=== PATIENT | female | born 1955 | race Caucasian/White ===

== ENCOUNTER 2019-09-23 15:52 | Inpatient (IN) ==
[2019-09-23] MEDS ORDERED: MoRPHine SULFATE 4 MG/ML 1 ML CARP\\VIAL IV STA (16:09)
[2019-09-23] MEDS ORDERED: ONDANSETRON INJ 2 MG/ML 2 ML VIAL IV STA (16:09)
[2019-09-23] MEDS ORDERED: SODIUM CHLORIDE 0.9% 1000ML 1,000 ML IV ONE (16:09)
--- NOTE | 2019-09-23 16:10 | Emergency Department Note ---
Impression & Plan Calculus of proximal left ureter, Acute UTI ED Provider Note CHIEF COMPLAINT: Left flank pain HISTORY OF PRESENTING ILLNESS: This is a 64-year-old female with past medical history of hypertension, hyperlipidemia, atrial fibrillation on Coumadin, and trigeminal neuralgia, who presents to the emergency department today with complaints of left-sided flank pain for the past few days that got worse today. She states the pain starts in her mid back and wraps around to the front of the abdomen. The pain has been much more severe today, constant, sharp, and she rates it an 8/10. She has been unable to find a comfortable position. She took 1500 mg of Tylenol around 11:30 AM this morning without much improvement in her pain. She has not tried any other medications for her pain. She saw her PCP this afternoon and they did a urine dip which was concerning for UTI, they sent her here to the emergency department for further evaluation. She has had associated nausea today but has not had any vomiting. She denies any fevers or chills. She has noted some increased urinary frequency and urgency, but denies any dysuria or hematuria. She has not had any diarrhea or constipation. She denies chest pain, shortness of breath, palpitations, dizziness or syncope, cough or URI symptoms. She denies any known sick contacts. She reports that she has had a UTI in the past, several years ago. She denies any history of kidney stones. REVIEW OF SYSTEMS: A complete 10 point review of systems was reviewed with the patient with pertinent positives and negatives as per history of present illness. All else were negative. PAST MEDICAL HISTORY: Hypertension, dyslipidemia, paroxysmal atrial fibrillation, chronic diastolic heart failure, trigeminal neuralgia, history of a BODY FITTER shunt SOCIAL HISTORY: Lives at home with her , she denies tobacco use ALLERGIES: Reviewed in chart with the patient PHYSICAL EXAM: CONSTITUTIONAL: Pleasant and cooperative. Nontoxic-appearing and in no acute distress, but appears uncomfortable from pain. Mildly dehydrated, but otherwise well appearing and well nourished. HEENT: Normocephalic, atraumatic. PERRL, EOMI. Pharynx normal. Tacky mucous membranes. NECK: Supple, full active range of motion without discomfort. RESPIRATORY: Clear to auscultation bilaterally with no wheezing, crackles, rhonchi or stridor. Equal expansion bilaterally. CARDIOVASCULAR: Regular rate and rhythm with no murmurs, rubs or gallops. Normal peripheral perfusion. No edema. GASTROINTESTINAL: Moderately tender to palpation in the left upper and mid abdomen, no rebound tenderness or guarding. The abdomen is otherwise nontender, soft and nondistended. No palpable masses or HSM. Bowel sounds present in all quadrants. Left-sided CVA tenderness to percussion, no right-sided CVA tenderness. MUSCULOSKELETAL: Full range of motion of all joints without discomfort. INTEGUMENTARY: No rash or other significant dermatologic conditions noted. NEUROLOGIC: Alert and oriented X 4 with normal affect. Normal strength and sensation in all 4 extremities. Normal speech. Normal gait observed. ED COURSE AND MEDICAL DECISION MAKING: CC: Patient presenting with complaint of left flank pain DIFFERENTIAL DIAGNOSIS: Includes, but not limited to ureteral stone, UTI, pyelonephritis, infected stone, pancreatitis, diverticulitis, electrolyte abnormality, dehydration, among others. INTERPRETATION OF LABS: Leukocytosis with left shift, no anemia, normal platelets, no significant electrolyte abnormalities, slightly elevated BUN and creatinine, normal liver enzymes and lipase. Coagulation factors are elevated, consistent with therapeutic levels of warfarin. UA appears consistent with a UTI noting positive nitrite, 2+ leukocyte esterase, greater than 30 WBCs and 4+ bacteria, with small epithelial cells. IMAGING: CT SCAN OF THE ABDOMEN AND PELVIS WITHOUT IV CONTRAST CLINICAL HISTORY: Left flank pain. COMPARISON STUDY: No priors. TECHNIQUE: CT scan of the abdomen and pelvis is performed from the lung bases to the proximal femora. Images are reviewed in the axial, sagittal, and coronal planes. IV contrast was not administered for this examination as per the referring clinician. A dose lowering technique was utilized adhering to the principles of ALARA. CT DOSE: 861.76 mGy.cm FINDINGS: Lung bases: The heart is normal in size and without pericardial effusion. The lung bases are clear. There is a tiny hiatal hernia. Liver: The unenhanced liver is normal in size, contour, and attenuation. There is no intrahepatic biliary ductal dilatation. Gallbladder: Unremarkable. Spleen: Normal in size and attenuation. Pancreas: Unremarkable. Adrenal glands: Unremarkable. Kidneys: The unenhanced kidneys demonstrate mild cortical atrophy. The left kidney is edematous with perinephric stranding and trace fluid. There is a 9 mm obstructing calculus in the left proximal ureter seen on image #214 at the level of L4. This causes [id number] left-sided hydronephrosis. There are at least 5 additional nonobstructing left renal calculi which measure up to 6 mm. There is a punctate nonshadowing calculus in the lower pole the right kidney. There is no right-sided hydronephrosis. There is no evidence of contour deforming renal mass lesion. Abdominal vasculature: The abdominal aorta is normal in course and caliber noting mild atherosclerotic calcification. Bowel: There is no bowel obstruction. The appendix is not identified and reported surgically absent. Peritoneum: A shunt catheter is coiled in the left pelvis. There is no intraper itoneal free air or abdominal ascites. Lymphadenopathy: None. Pelvic viscera: The bladder, uterus, and adnexa are normal as visualized. Skeletal structures: The skeletal structures are osteopenic. There is lumbosacral spondylosis, with postoperative change from laminectomy and posterior fusion seen from L3 -L5. Degenerative sclerosis is noted in the sacroiliac joints and the pubic symphysis. No lytic or blastic lesions are seen. IMPRESSION: 1. There is a 9 mm obstructing calculus in the left proximal ureter as above. This causes [id number] left-sided hydronephrosis. 2. Additional bilateral nonobstructing renal calculi are present in both kidneys as detailed above. 3. Additional findings as above. MEDICATION RECONCILIATION: I attest that I have personally reviewed the patient's current medication list. INITIAL VITAL SIGNS REVIEW: I reviewed the patient's initial vital signs and interpret them as follows: T: Afebrile; BP: Hypertensive; HR: Within normal limits; RR: Within normal limits; Pulse Ox: Within normal limits on room air. Blood pressure screening: The patient was found to have an elevated blood pressure, which was felt to be situational, and was referred to the inpatient team for further managment. MDM SUMMARY: Patient was evaluated at bedside, history and physical exam performed. Patient is alert and oriented, in no acute distress, resting calmly in the stretcher. Patient appears uncomfortable, but is nontoxic-appearing and noted to be afebrile. She does appear to be mildly dehydrated clinically. Left-sided tenderness in the abdomen/flank, with CVA tenderness on the left as well. No acute abdomen. Orders were placed at bedside for labs, UA and urine culture, IV fluid bolus for hydration, IV morphine for pain, IV Zofran for nausea, CT abdomen/pelvis noncontrast to evaluate for left flank pain. Patient discussed with Dr. Coburn, who agrees with my assessment, plan, and disposition. Labs and imaging reviewed as above, labs are concerning for a leukocytosis and slightly elevated BUN and creatinine. Urinalysis appears consistent with infection, a urine culture is pending. 2 g IV Rocephin ordered. CT imaging is notable for a proximal 9 mm obstructing stone in the left ureter with resulting moderate left-sided hydronephrosis. I spoke on the phone with Dr. Arias, urology on-call, regarding my concern for infected obstructing ureteral stone, she agreed to come evaluate the patient and plans to take her to the OR this evening for stent placement. She requested the patient be admitted to the medicine service for IV antibiotics. I spoke with Dr. Kimbrough, [facility] Hospitalist, who to evaluate the patient for the admission. Patient reassessed multiple times throughout ED stay, she has remained hemodynamically stable and her pain is improved after the morphine. The patient was noted to have rigors, a repeat temp check noting that she has become febrile at 38.4 by my check. It is too soon for her to have additional Tylenol at this time and she is being taken to the OR now. Dr. Arias was made aware of the patient's fever. The patient was updated on all results and plan for admission and surgery, all questions were answered at this time she verbalized understanding agreement with the plan. The patient was stable at time of transfer to the OR. The chart was completed utilizing [employer]out Speech voice recognition software. Grammatical errors, random word insertions, pronoun errors, and incomplete sentences are an occasional consequence of this system due to software limitations, ambient noise, and hardware issues. Any formal questions or concerns about the content, text, or information contained within the body of this dictation should be directly addressed to the nurse practitioner for clarification. Attending Attestation: I Jw Coburn MD independently saw and evaluated this patient and agree with history and physical is otherwise documented by the nurse practitioner. See their note for full details. Patient without abdominal tenderness but rigors on exam. Still with mild L flank,LLQ pain. CT, UA, and labs reviewed concerning for L kidney stone and urine infection with developing sepsis. Urology to take for stent, medical admission. Past Med/Surg History Medical History Arachnoid cyst Atrial fibrillation on warfarin and flecinaide---follows with Dr. Hartley Essential tremor (Chronic) bilt hands Hearing deficit Hyperlipidemia Hypertension Lumbar radiculopathy (Chronic) On anticoagulant therapy warfarin daily Osteoarthritis Spinal stenosis Trigeminal neuralgia of right side of face Surgical History History of cardiac cath x1--"at least 10yrs ago", no stents History of colonoscopy History of craniotomy x2 @ [facility] "benign cyst in brain that kept getting bigger, causing severe headaches" with 2nd craniotomy put shunt in History of left breast biopsy benign History of lumbar spinal fusion History of tooth extraction all top teeth removed S/P BODY FITTER shunt (Acute) 2004 @ [facility] [place] Family History Father Family hx of colon cancer COPD (chronic obstructive pulmonary disease) Diabetes Hypertension Uncle Family hx colonic polyps Brother Hypertension Other No family history of adverse response to anesthesia Social History Preferred Language: Faroese Communication Ability: Effective Quality System Manager Required: No Beliefs That Will Affect Care: None Current Living Situation: Alone Feels Safe at Home: Yes Safety Concerns: Feels Safe At This Time Smoking Status: Never smoker Second Hand Exposure: Yes (father smoked) ; Hx Alcohol Use: No Hx Substance Use: No Allergies Allergies Allergy/AdvReac Type Severity Reaction Status Date / Time furosemide [From Lasix] Allergy Intermediate Hypotension Verified 09/23/19 16:23 Home Meds Home Medications Medication Instructions Recorded Confirmed acetaminophen 500 mg tablet 500 mg PO Q4H PRN tab 03/13/19 09/23/19 lisinopril 20 mg PO QAM 04/20/19 09/23/19 Previous Rx's Medication Instructions Recorded simvastatin 20 mg tablet 20 mg PO QPM #90 tab 04/15/19 wrist immobilizer Right #1 ea 05/13/19 Neoprene elbow sleeve compressive #1 ea 05/14/19 warfarin 2 mg tablet 2 mg PO HS #100 tab 06/02/19 warfarin 4 mg tablet 4 mg PO HS #100 tab 06/02/19 flecainide 100 mg tablet 100 mg PO Q12H #180 tab 06/14/19 oxcarbazepine 150 mg tablet 150 mg PO BID 30 Days #60 tab 07/08/19 baclofen 10 mg tablet 10 mg PO QID PRN #120 tab 08/20/19 topiramate 200 mg tablet 200 mg PO BID 30 Days #60 tab 08/24/19 Results & Data (ED) Vital Signs Vital Signs - 24 hr 09/23/19 15:59 09/23/19 16:37 09/23/19 17:53 Temperature 36.5 C Temperature Source Oral Pulse Rate 68 64 Pulse Rate [Apical] 78 Pulse Rate [Left Finger] Pulse Rhythm [Left Finger] Pulse Strength [Left Finger] Respiratory Rate 18 14 22 Respiratory Effort / Characteristics Non-Labored Spontaneous Non-Labored Spontaneous Respiratory Depth Normal Normal Respiratory Pattern Regular Blood Pressure 192/90 H Blood Pressure [Right Arm] 144/104 H Blood Pressure Mean 124 Blood Pressure Mean [Right Arm] 117 Blood Pressure Position Sitting Blood Pressure Position [Right Arm] Pulse Oximetry 97 97 96 Oxygen Delivery Method Room Air Room Air Room Air Sepsis Recent Fever Within 48 Hours No Sepsis Action Taken by Nursing No Action Required 09/23/19 18:46 Temperature 38.3 C H Temperature Source Oral Pulse Rate Pulse Rate [Apical] Pulse Rate [Left Finger] 86 Pulse Rhythm [Left Finger] Regular Pulse Strength [Left Finger] Normal Respiratory Rate 20 Respiratory Effort / Characteristics Non-Labored Spontaneous Respiratory Depth Normal Respiratory Pattern Blood Pressure Blood Pressure [Right Arm] 180/81 H Blood Pressure Mean Blood Pressure Mean [Right Arm] 114 Blood Pressure Position Blood Pressure Position [Right Arm] Lying Pulse Oximetry 95 Oxygen Delivery Method Room Air Sepsis Recent Fever Within 48 Hours Sepsis Action Taken by Nursing Laboratory Data Result diagrams: 09/24/19 04:53 09/24/19 04:53 Lab Results 09/23/19 09/23/19 09/23/19 Range/Units 16:33 16:33 16:33 WBC 17.70 H (4.8-10.8) K/uL RBC 4.26 (4.2-5.4) M/uL Hgb 13.5 (12.0-16.0) g/dL Hct 40.3 (37-47) % MCV 94.6 (80-100) fL MCH 31.7 (25-34) pg MCHC 33.5 (32-36) g/dL RDW Std Deviation 45.4 (36.4-46.3) fL RDW Coeff of Twyla 13.2 (11.5-14.5) % Plt Count 310 (130-400) K/uL MPV 9.8 (7.4-10.4) fL Immature Gran % (Auto) 0.3 % Neut % (Auto) 85.0 % Lymph % (Auto) 7.2 % Izard % (Auto) 7.2 % Eos % (Auto) 0.1 % Baso % (Auto) 0.2 % Immature Gran # (Auto) 0.05 H (0.00-0.02) K/uL Neut # (Auto) 15.06 H (1.4-6.5) K/uL Lymph # (Auto) 1.27 (1.2-3.4) K/uL [place] # (Auto) 1.28 H (0.11-0.59) K/uL Eos # (Auto) 0.01 (0-0.5) K/uL Baso # (Auto) 0.03 (0-0.2) K/uL PT 29.8 H (9.0-12.0) Seconds INR 3.0 H (0.9-1.1) APTT 47.6 H* (21.0-31.0) Seconds PTT Ratio 1.7 Sodium 139 (136-145) mmol/L Potassium 3.6 (3.5-5.1) mmol/L Chloride 111 H (98-107) mmol/L Carbon Dioxide 23 (21-32) mmol/L Anion Gap 5.0 (3-11) BUN 21 H (7-18) mg/dl Creatinine 1.25 H (0.6-1.2) mg/dl Est Cr Clr Drug Dosing 51.4 ml/min Est GFR ( Amer) 51.9 Est GFR (Non-Af Amer) 44.8 BUN/Creatinine Ratio 16.6 (10-20) Glucose 117 H (70-99) mg/dl Calcium 9.0 (8.5-10.1) mg/dl Total Bilirubin 0.3 (0.2-1) mg/dl AST 15 (15-37) U/L ALT 24 (12-78) U/L Alkaline Phosphatase 80 (45-117) U/L Total Protein 8.4 H (6.4-8.2) gm/dl Albumin 4.4 (3.4-5.0) gm/dl Globulin 4.0 (2.5-4.0) gm/dl Albumin/Globulin Ratio 1.1 (0.9-2) Lipase 159 (73-393) U/L Urine Color Urine Appearance (Clear) Urine pH (4.5-7.5) Ur Specific [place] (1.000-1.030) Urine Protein (Negative) Urine Glucose (UA) (Negative) Urine Ketones (Negative) Urine Blood (Negative) Urine Nitrite (Negative) Urine Bilirubin (Negative) Urine Urobilinogen (Negative) Ur Leukocyte Esterase (Negative) Urine WBC (Auto) (0-5) /hpf Urine RBC (Auto) (0-4) /hpf U Hyaline Cast (Auto) (0-5) /lpf U Epithel Cells (Auto) (0-5) /lpf Urine Bacteria (Auto) (Negative) 09/23/19 Range/Units 16:33 WBC (4.8-10.8) K/uL RBC (4.2-5.4) M/uL Hgb (12.0-16.0) g/dL Hct (37-47) % MCV (80-100) fL MCH (25-34) pg MCHC (32-36) g/dL RDW Std Deviation (36.4-46.3) fL RDW Coeff of Twyla (11.5-14.5) % Plt Count (130-400) K/uL MPV (7.4-10.4) fL Immature Gran % (Auto) % Neut % (Auto) % Lymph % (Auto) % [place] % (Auto) % Eos % (Auto) % Baso % (Auto) % Immature Gran # (Auto) (0.00-0.02) K/uL Neut # (Auto) (1.4-6.5) K/uL Lymph # (Auto) (1.2-3.4) K/uL [place] # (Auto) (0.11-0.59) K/uL Eos # (Auto) (0-0.5) K/uL Baso # (Auto) (0-0.2) K/uL PT (9.0-12.0) Seconds INR (0.9-1.1) APTT (21.0-31.0) Seconds PTT Ratio Sodium (136-145) mmol/L Potassium (3.5-5.1) mmol/L Chloride (98-107) mmol/L Carbon Dioxide (21-32) mmol/L Anion Gap (3-11) BUN (7-18) mg/dl Creatinine (0.6-1.2) mg/dl Est Cr Clr Drug Dosing ml/min Est GFR ( Amer) Est GFR (Non-Af Amer) BUN/Creatinine Ratio (10-20) Glucose (70-99) mg/dl Calcium (8.5-10.1) mg/dl Total Bilirubin (0.2-1) mg/dl AST (15-37) U/L ALT (12-78) U/L Alkaline Phosphatase (45-117) U/L Total Protein (6.4-8.2) gm/dl Albumin (3.4-5.0) gm/dl Globulin (2.5-4.0) gm/dl Albumin/Globulin Ratio (0.9-2) Lipase (73-393) U/L Urine Color Yellow Urine Appearance Turbid A (Clear) Urine pH 7.5 (4.5-7.5) Ur Specific [place] 1.024 (1.000-1.030) Urine Protein Negative (Negative) Urine Glucose (UA) Negative (Negative) Urine Ketones Negative (Negative) Urine Blood 1+ H (Negative) Urine Nitrite Positive A (Negative) Urine Bilirubin Negative (Negative) Urine Urobilinogen Negative (Negative) Ur Leukocyte Esterase 2+ H (Negative) Urine WBC (Auto) >30 H (0-5) /hpf Urine RBC (Auto) 10-30 H (0-4) /hpf U Hyaline Cast (Auto) 5-10 H (0-5) /lpf U Epithel Cells (Auto) 5-10 H (0-5) /lpf Urine Bacteria (Auto) 4+ H (Negative) Administered Medications Acetaminophen (Tylenol) 500 mg PO Q4H PRN PRN Reason: fever or pain Stop: 10/23/19 20:16 Last Admin: 09/24/19 07:59 Dose: 500 mg Documented by: [id number] Admin: 09/23/19 21:40 Dose: 500 mg Documented by: [id number] Flecainide Acetate (Tambocor) 100 mg PO Q12H [facility] Stop: 10/23/19 20:59 Last Admin: 09/24/19 08:00 Dose: 100 mg Documented by: [id number] Admin: 09/23/19 21:25 Dose: 100 mg Documented by: [id number] Sodium Chloride (Nss 1000ml) 1,000 mls @ 100 mls/hr IV .Q10H ASHWIN Stop: 10/23/19 20:16 Last Admin: 09/24/19 10:20 Dose: 100 mls/hr Documented by: [id number] Admin: 09/24/19 08:01 Dose: Not Given Documented by: [id number] Infusion: 09/24/19 07:24 Dose: 100 mls/hr Documented by: [id number] Admin: 09/23/19 21:24 Dose: 100 mls/hr Documented by: [id number] Ceftriaxone Sodium 2,000 mg/ (Dextrose) 50 ml in 70 mls @ 140 mls/hr IV DAILY ASHWIN Stop: 10/04/19 08:59 Last Infusion: 09/24/19 10:24 Dose: 0 mls/hr Documented by: [id number] Admin: 09/24/19 09:01 Dose: 140 mls/hr Documented by: [id number] Oxcarbazepine (Trileptal) 150 mg PO BID ASHWIN Stop: 10/23/19 20:59 Last Admin: 09/24/19 08:00 Dose: 150 mg Documented by: [id number] Admin: 09/23/19 21:26 Dose: 150 mg Documented by: [id number] Simvastatin (Zocor) 20 mg PO QPM ASHWIN Stop: 10/23/19 20:59 Last Admin: 09/23/19 21:26 Dose: 20 mg Documented by: [id number] Topiramate (Topamax) 200 mg PO BID ASHWIN Stop: 10/23/19 20:59 Last Admin: 09/24/19 08:00 Dose: 200 mg Documented by: [id number] Admin: 09/23/19 21:25 Dose: 200 mg Documented by: [id number] Discontinued Medications Acetaminophen (Ofirmev) Confirm Administered Dose 1,000 mg IV .STK-MED ONE Stop: 09/23/19 19:10 Last Admin: 09/23/19 19:23 Dose: Not Given Documented by: [id number] Sodium Chloride (Nss 1000ml) 1,000 mls @ 999 mls/hr IV .Q1H1M ONE Stop: 09/23/19 17:09 Last Infusion: 09/23/19 18:11 Dose: 0 mls/hr Documented by: [id number] Admin: 09/23/19 16:32 Dose: 999 mls/hr Documented by: [id number] Ceftriaxone Sodium (Rocephin) 2,000 mg in 70 mls @ 140 mls/hr IV NOW STA Stop: 09/23/19 17:29 Last Infusion: 09/23/19 17:45 Dose: 0 mls/hr Documented by: [id number] Admin: 09/23/19 17:10 Dose: 140 mls/hr Documented by: [id number] Iothalamate Meglumine (Cysto-Conray Ii) Confirm Administered Dose 250 ml .ROUTE .STK-MED ONE Stop: 09/23/19 18:34 Last Admin: 09/23/19 19:51 Dose: Not Given Documented by: [id number] Morphine Sulfate (Morphine Sulfate) 4 mg IV NOW STA Stop: 09/23/19 16:10 Last Admin: 09/23/19 16:33 Dose: 4 mg Documented by: [id number] Ondansetron HCl (Zofran) 4 mg IV NOW STA Stop: 09/23/19 16:10 Last Admin: 09/23/19 16:33 Dose: 4 mg Documented by: [id number] Discharge Plan Visit Data *Final* Discharge Date/Time: 09/23/19 18:34 Chief Complaint: Urinary Symptoms Stated Complaint: UTI, POSSIBLE KIDNEY STONE, SENT BY ED Provider: Jw Coburn ED Midlevel Provider: Guillermina Lopez Discharge Problem: Calculus of proximal left ureter, Acute UTI Patient Disposition: Admitted As Inpatient Discharge Instructions Interventions: ED Discharge Assessment Last Done: 09/23/19 18:34
[2019-09-23 16:49] LABS: Hematocrit (blood only) 40.3 % (37-47); Hemoglobin 13.5 g/dL (12.0-16.0); Mean Corpuscular Hemoglobin 31.7 pg (25-34); Mean Corpuscular Hgb Conc 33.5 g/dL (32-36); Mean Corpuscular Volume 94.6 fL (80-100); Mean Platelet Volume 9.8 fL (7.4-10.4); Platelet Count 310 K/uL (130-400); RDW Coefficient of Variation 13.2 % (11.5-14.5); RDW Standard Deviation 45.4 fL (36.4-46.3); Red Blood Count 4.26 M/uL (4.2-5.4)
[2019-09-23 16:50] LABS: Appearance Urine Turbid (Clear); Bacteria Urine Automated 4+ (Negative); Bilirubin Urine Negative (Negative); Blood Urine 1+ (Negative); Color Urine Yellow; Glucose Urine UA Negative (Negative); Ketones Urine Negative (Negative); Leukocyte Esterase Urine 2+ (Negative); Nitrite Urine Positive (Negative); Specific Gravity Urine 1.024 (1.000-1.030); Urobilinogen Urine Negative (Negative); WBC Urine Automated >30 /hpf (0-5); pH Urine 7.5 (4.5-7.5)
[2019-09-23 16:52] LABS: Protein Urine Negative (Negative); Sulfosalicylic Acid Urine Negative (Negative)
[2019-09-23] MEDS ORDERED: cefTRIAXone SODIUM 2,000 MG/70 ML BAG IV STA (17:00)
[2019-09-23 17:05] LABS: Albumin Level 4.4 gm/dl (3.4-5.0); BUN Creatinine Ratio 16.6 (10-20); Creatinine Clr Calc Pharmacy 51.4 ml/min; Est GFR (African American) 51.9; Est GFR (Non-African American) 44.8; Potassium 3.6 mmol/L (3.5-5.1)
[2019-09-23 17:08] LABS: Albumin Globulin Ratio 1.1 (0.9-2); Bilirubin,Total 0.3 mg/dl (0.2-1); Total Protein 8.4 gm/dl (6.4-8.2)
[2019-09-23 17:11] LABS: Partial Thromboplastin Ratio 1.7; Prothrombin Time 29.8 Seconds (9.0-12.0)
[2019-09-23 17:18] LABS: Basophils # (auto) 0.03 K/uL (0-0.2); Basophils % (auto) 0.2 %; Eosinophils # (auto) 0.01 K/uL (0-0.5); Eosinophils % (auto) 0.1 %; Immature Granulocytes # (auto) 0.05 K/uL (0.00-0.02); Immature Granulocytes % (auto) 0.3 %; Lymphocytes # (auto) 1.27 K/uL (1.2-3.4); Lymphocytes % (auto) 7.2 %; Monocytes # (auto) 1.28 K/uL (0.11-0.59); Monocytes % (auto) 7.2 %; Neutrophils # (auto) 15.06 K/uL (1.4-6.5)
[2019-09-23 17:23] LABS: Partial Thromboplastin Time 47.6 Seconds (21.0-31.0)
--- NOTE | 2019-09-23 17:23 | CT Scan Report ---
CT SCAN OF THE ABDOMEN AND PELVIS WITHOUT IV CONTRAST CLINICAL HISTORY: Left flank pain. COMPARISON STUDY: No priors. TECHNIQUE: CT scan of the abdomen and pelvis is performed from the lung bases to the proximal femora. Images are reviewed in the axial, sagittal, and coronal planes. IV contrast was not administered for this examination as per the referring clinician. A dose lowering technique was utilized adhering to the principles of ALARA. CT DOSE: 861.76 mGy.cm FINDINGS: Lung bases: The heart is normal in size and without pericardial effusion. The lung bases are clear. T here is a tiny hiatal hernia. Liver: The unenhanced liver is normal in size, contour, and attenuation. There is no intrahepatic alessandro iary ductal dilatation. Gallbladder: Unremarkable. Spleen: Normal in size and attenuation. Pancreas: Unremarkable. Adrenal glands: Unremarkable. Kidneys: The unenhanced kidneys demonstrate mild cortical atrophy. The left kidney is edematous with perinephric stranding and trace fluid. There is a 9 mm obstructing calculus in the left proximal uret er seen on image #214 at the level of L4. This causes [id number] left-sided hydronephrosis. The re are at least 5 additional nonobstructing left renal calculi which measure up to 6 mm. There is a p unctate nonshadowing calculus in the lower pole the right kidney. There is no right-sided hydronephro sis. There is no evidence of contour deforming renal mass lesion. Abdominal vasculature: The abdominal aorta is normal in course and caliber noting mild atheroscleroti c calcification. Bowel: There is no bowel obstruction. The appendix is not identified and reported surgically absent. Peritoneum: A shunt catheter is coiled in the left pelvis. There is no intraperitoneal free air or ab dominal ascites. Lymphadenopathy: None. Pelvic viscera: The bladder, uterus, and adnexa are normal as visualized. Skeletal structures: The skeletal structures are osteopenic. There is lumbosacral spondylosis, with p ostoperative change from laminectomy and posterior fusion seen from L3 -L5. Degenerative sclerosis is noted in the sacroiliac joints and the pubic symphysis. No lytic or blastic lesions are seen. IMPRESSION: 1. There is a 9 mm obstructing calculus in the left proximal ureter as above. This causes mild-to-mod erate left-sided hydronephrosis. 2. Additional bilateral nonobstructing renal calculi are present in both kidneys as detailed above. 3. Additional findings as above. ACT 112: Negative or not required by law. Electronically signed by: Dustin Barahona M.D. 09/23/2019 5:22 PM
[2019-09-23] MEDS ORDERED: PROPOFOL IV EMULSION 10 MG/ML 20 ML VIAL IV ONE (18:32)
[2019-09-23] MEDS ORDERED: fentaNYL citrate 100 MCG/2 ML VIAL ONE (18:32)
[2019-09-23] MEDS ORDERED: LIDOCAINE HCL 2% 2 ML VIAL/AMP(20MG/ML) INFIL ONE (18:32)
[2019-09-23] MEDS ORDERED: MIDAZOLAM HCL 1 MG/ML 2ML VIAL ONE (18:32)
[2019-09-23] MEDS ORDERED: ONDANSETRON INJ 2 MG/ML 2 ML VIAL ONE (18:32)
[2019-09-23] MEDS ORDERED: IOTHALAMATE MEGLUMINE II 17.2% 250 ML VIAL ONE (18:33)
[2019-09-23] MEDS ORDERED: ATROPINE SULFATE 0.1 MG/ML 10ML SYR IV PRN (18:34)
[2019-09-23] MEDS ORDERED: ePHEDrine sulfate 50 MG/ML AMP IV PRN (18:34)
[2019-09-23] MEDS ORDERED: fentaNYL citrate 100 MCG/2 ML VIAL IV PRN (18:34)
[2019-09-23] MEDS ORDERED: ONDANSETRON INJ 2 MG/ML 2 ML VIAL IV PRN ×2 (18:34→20:17)
--- NOTE | 2019-09-23 18:34 | Anesthesiology Consultation ---
Date of Service September 23, 2019 Assessment & Plan (1) Encounter for pre-operative examination: Chart Review Chart Review: Acceptable Risk for Surgery Consults Requested none ASA [id number] Proposed Anesthesia Anesthesia Type: MAC Risk / Benefits Reviewed With: PT / POA / Parent / Guardian, Accepts Plan and Informed Consent Obtained History Surgery Operation Date: 09/23/19 19:00 Proposed Procedures p Ureteral Stent Insertion/Removal - uY Arias MD Height/Weight Height: 5 ft 5 in Weight: 98.3 kg Allergies Allergy/AdvReac Type Severity Reaction Status Date / Time furosemide [From Lasix] Allergy Intermediate Hypotension Verified 09/23/19 16:23 Medications Home Medications Medication Instructions Recorded Confirmed Last Taken acetaminophen 500 mg tablet 500 mg PO Q4H PRN tab 03/13/19 09/23/19 09/23/19 11:30 1500 mg simvastatin 20 mg tablet 20 mg PO QPM #90 tab 04/15/19 09/23/19 09/22/19 lisinopril 20 mg PO QAM 04/20/19 09/23/19 09/23/19 07:00 wrist immobilizer Right #1 ea 05/13/19 09/23/19 Unknown Neoprene elbow sleeve compressive #1 ea 05/14/19 09/23/19 Unknown warfarin 2 mg tablet 2 mg PO HS #100 tab 06/02/19 09/23/19 09/22/19 warfarin 4 mg tablet 4 mg PO HS #100 tab 06/02/19 09/23/19 09/22/19 flecainide 100 mg tablet 100 mg PO Q12H #180 tab 06/14/19 09/23/19 09/23/19 07:00 oxcarbazepine 150 mg tablet 150 mg PO BID 30 Days #60 tab 07/08/19 09/23/19 09/23/19 07:00 baclofen 10 mg tablet 10 mg PO QID PRN #120 tab 08/20/19 09/23/19 Unknown topiramate 200 mg tablet 200 mg PO BID 30 Days #60 tab 08/24/19 09/23/19 09/23/19 07:00 NPO Date Last Intake of Fluids: 09/23/19 Time Last Intake of Fluids: 07:00 Date Last Intake of Solids: 09/23/19 Time Last Intake of Solids: 07:00 Past Medical History Medical History Arachnoid cyst Atrial fibrillation on warfarin and flecinaide---follows with Dr. Hartley Essential tremor (Chronic) bilt hands Hearing deficit Hyperlipidemia Hypertension Lumbar radiculopathy (Chronic) On anticoagulant therapy warfarin daily Osteoarthritis Spinal stenosis Trigeminal neuralgia of right side of face Exercise / Class Metabolic Activity III < 4 Walking/Shop/Light housework Past Family History Family History Father Family hx of colon cancer COPD (chronic obstructive pulmonary disease) Diabetes Hypertension Uncle Family hx colonic polyps Brother Hypertension Other No family history of adverse response to anesthesia Past Surgical History Surgical History History of cardiac cath x1--"at least 10yrs ago", no stents History of colonoscopy [place] [facility] [place] in brain that kept getting bigger, causing severe headaches" with 2nd craniotomy put shunt in History of left breast biopsy benign History of lumbar spinal fusion History of tooth extraction all top teeth removed S/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 (Acute) 2004 [place] [facility] [place] Past Anesthesia History No Hx of Anesthesia Complications and No Family Hx of Anesthesia Complications History of PONV No Hx of PONV and No Hx of Motion Sickness Social History Smoking Status: Never smoker Hx Alcohol Use: No Hx Substance Use: No substance use type: does not use Physical Exam Vital Signs Last Vital Signs Temp 97.7 F 09/23/19 15:59 Pulse 78 09/23/19 17:53 Resp 22 09/23/19 17:53 BP 144/104 H 09/23/19 17:53 Pulse Ox 96 09/23/19 17:53 ENMT Mouth: + dentures (Upper) Thyromental Distance: > or= 3.5 Finger Breadths Mallampati Class: II Neck normal visual inspection Respiratory normal respiratory effort Auscultation: lungs clear to auscultation bilaterally Cardiovascular Rate/Rhythm: regular rate and regular rhythm Testing Laboratory Results 09/23/19 16:33 09/23/19 16:33 PT 29.8 Seconds (9.0-12.0) H 09/23/19 16:33 INR 3.0 (0.9-1.1) H 09/23/19 16:33 APTT 47.6 Seconds (21.0-31.0) H* 09/23/19 16:33 Urine Color Yellow 09/23/19 16:33 Urine Appearance Turbid (Clear) A 09/23/19 16:33 Urine pH 7.5 (4.5-7.5) 09/23/19 16:33 Ur Specific [place] 1.024 (1.000-1.030) 09/23/19 16:33 Urine Protein Negative (Negative) 09/23/19 16:33 Urine Glucose (UA) Negative (Negative) 09/23/19 16: Urine Ketones Negative (Negative) 09/23/19 16: Urine Nitrite Positive (Negative) A 09/23/19 16:33 Ur Leukocyte Esterase 2+ (Negative) H 09/23/19 16:33 Urine WBC (Auto) >30 /hpf (0-5) H 09/23/19 16:33 Urine RBC (Auto) 10-30 /hpf (0-4) H 09/23/19 16:33 U Hyaline Cast (Auto) 5-10 /lpf (0-5) H 09/23/19 16:33 U Epithel Cells (Auto) 5-10 /lpf (0-5) H 09/23/19 16:33 Urine Bacteria (Auto) 4+ (Negative) H 09/23/19 16:33 Electrocardiogram Date: 09/23/19 Poor data quality, interpretation may be adversely affected Wide QRS rhythm, rate 89 bpm Left axis deviation Septal infarct , age undetermined Abnormal ECG When compared with ECG of 02-DEC-2012 10:36, Wide QRS rhythm has replaced Atrial fibrillation Vent. rate has increased BY 31 BPM Stress Test Date: 12/11/18 Impression: 1. Negative myocardial perfusion study for ischemic changes. 2. Small, mild anterior and anteroseptal fixed defect likely related to breast attenuation artifact, given normal wall motion. Cannot rule out small infarct. 3. Normal wall motion and left ventricular systolic function. EF 60%. 4. No chest pain. 5. Nondiagnostic Lexiscan ECG.
--- NOTE | 2019-09-23 19:01 | History & Physical Report ---
Date of Service September 23, 2019 Assessment & Plan (1) Ureteral stone: Patient is left-sided 9mm stone in the proximal ureter, causing moderate hydronephrosis and perinephric stranding. Appears to be infected by lab work and symptomatology. Patient is going for emergent surgery with urology now. She was given grams of Rocephin in the ER, will continue this at 1 g daily for now pending culture results. Will follow postoperatively. (2) Dyslipidemia: Patient can continue simvastatin 20 mg as previously noted all of her other outpatient medications. (3) Paroxysmal atrial fibrillation: Patient is on Coumadin INR 3. I discussed with urology, will hold, consider restarting tomorrow night if INR is between 2 and 3. Patient will need to continue grams every 12 hours. Will hold off on the lisinopril for now until renal function normalizes. History of Present Illness Primary Care Provider: Marco Kirkpatrick MD This is a 64-year-old female past medical history of paroxysmal atrial fibrillation on Coumadin, dyslipidemia, and chronic diastolic CHF that presents today complaining of left-sided flank pain. Patient is in some distress secondary to pain, history is limited as the patient is due to be in the OR momentarily. Patient tells me that she was having some mild flank pain over the past 2 days, this worsened significantly on in the morning. She did not have any dysuria. She denied any fevers but she did have chills and is exhibiting significant rigors during the interview. Pain is mostly over the left flank. She has noticed no hematuria on presentation, the patient was given 2 g of Rocephin along with fentanyl 25 mcg for pain. She is, the pain has worsened somewhat has a fentanyl is wearing off. Of note, the urologist was already in the room obtaining consent for ureteral stent placement which is to be done momentarily. Allergies Allergy/AdvReac Type Severity Reaction Status Date / Time furosemide [From Lasix] Allergy Intermediate Hypotension Verified 09/23/19 16:23 Home Medications Home Medications Medication Instructions Recorded Confirmed Type acetaminophen 500 mg tablet 500 mg PO Q4H PRN tab 03/13/19 09/23/19 History simvastatin 20 mg tablet 20 mg PO QPM #90 tab 04/15/19 09/23/19 Rx lisinopril 20 mg PO QAM 04/20/19 09/23/19 History wrist immobilizer Right #1 ea 05/13/19 09/23/19 Rx Neoprene elbow sleeve compressive #1 ea 05/14/19 09/23/19 Rx warfarin 2 mg tablet 2 mg PO HS #100 tab 06/02/19 09/23/19 Rx warfarin 4 mg tablet 4 mg PO HS #100 tab 06/02/19 09/23/19 Rx flecainide 100 mg tablet 100 mg PO Q12H #180 tab 06/14/19 09/23/19 Rx oxcarbazepine 150 mg tablet 150 mg PO BID 30 Days #60 tab 07/08/19 09/23/19 Rx baclofen 10 mg tablet 10 mg PO QID PRN #120 tab 08/20/19 09/23/19 Rx topiramate 200 mg tablet 200 mg PO BID 30 Days #60 tab 08/24/19 09/23/19 Rx Past Med/Surg History Medical History Arachnoid cyst Atrial fibrillation on warfarin and flecinaide---follows with Dr. Hartley Essential tremor (Chronic) bilt hands Hearing deficit Hyperlipidemia Hypertension Lumbar radiculopathy (Chronic) On anticoagulant therapy warfarin daily Osteoarthritis Spinal stenosis Trigeminal neuralgia of right side of face Surgical History History of cardiac cath x1--"at least 10yrs ago", no stents History of colonoscopy [place] [facility] [place] [facility] [place] in [place] that kept getting bigger, causing severe headaches" with 2nd craniotomy put shunt in History of left breast biopsy benign History of lumbar spinal fusion History of tooth extraction all top teeth removed S/P PET RESORT CONCIERGE shunt (Acute) 2004 [place] [facility] [place] [place] Family History Father Family hx of colon cancer COPD (chronic obstructive pulmonary disease) Diabetes Hypertension Uncle Family hx colonic polyps Brother Hypertension Other No family history of adverse response to anesthesia Social History Preferred Language: Malawian Communication Ability: Effective 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 Machine Typist Required: No Beliefs That Will Affect Care: None Current Living Situation: Alone Feels Safe at Home: Yes Safety Concerns: Feels Safe At This Time Smoking Status: Never smoker Second Hand Exposure: Yes (father smoked) ; Hx Alcohol Use: No Hx Substance Use: No Review of Systems Constitutional: + chills and + body aches; no fever, no weakness, no weight loss and no weight gain Eyes: as per Subjective / HPI Respiratory: no cough, no chest congestion, no dyspnea and no dyspnea on exer tion Cardiovascular: no chest pain, no orthopnea, no palpitations, no ligh theadedness and no edema Gastrointestinal: no abdominal pain, no nausea, no vomiting, no constipation and no diarrhea/loose stools Genitourinary: no dysuria, no difficulty urinating, no urinary frequency, no urinary hesitancy, no urinary urgency and no flank pain CVA pain Musculoskeletal: no back pain, no neck pain, no joint pain, no stiffness and no myalgia Integumentary: no rash Neurologic: no gait abnormality, no unsteadiness, no falls and no generalized weakness Physical Exam Constitutional: cooperative; no acute distress rigorous, somewhat uncomfortable from pain Neck: trachea midline, no thyromegaly Respiratory: normal respiratory effort Auscultation: lungs clear to auscultation bilaterally; no crackles, no rales, no rhonchi and no wheezes Cardiovascular: Rate/Rhythm: regular rate and regular rhythm Heart Sounds: normal S1 and normal S2 Gastrointestinal (Abdomen): Inspection/Auscultation: abdomen normal to inspection Percussion/Palpation: abdomen soft; abdomen nontender, no guarding, abdomen not rigid and no hepatosplenomegaly Skin: no rashes, warm and dry Results & Data Results & Data ([facility]) Vital Signs (Past 12 Hours) Vital Signs Temp Pulse Pulse Resp BP BP Pulse Ox 09/23/19 17:53 78 22 144/104 H 96 09/23/19 16:37 64 14 97 09/23/19 15:59 36.5 C 68 18 192/90 H 97 Laboratory Results WBCs of 17.7, hemoglobin of 13, hematocrit of 40.3, platelets of 310. INR is 3. Sodium 139, potassium 3.6, chloride 111, CO2 23,, BUN 21, creatinine 1.25. This appears to be elevated from previous lab draw from 05/29/2019. Left is normal. Urine is turbid with 1+ blood, positive nitrites, 2+ leuk esterases, over 30 WBCs, 10-30 RBCs. Diagnostic Findings [facility], [place] [phone] CT Scan Report Patient: SAYDA MCELROY Date: 09/23/19 MR#: [id number]: [address] [facility] Acct ID:[id number]: Date: 1955[facility] Zip: [place] [id number] Age: 64Location: ED Sex: F Room/Bed: Att Phy:Diagnosis: UTI, POSSIBLE KIDNEY STONE, SENT BY DR Hsu Phy: Marco Kirkpatrick, MDService Date: 09/23/19 [facility] Phy:Interpreting Phy: Dustin Barahona MD Admit Phy: Ordering Phy: Guillermina Lopez CRNP cc: ~ CT SCAN OF THE ABDOMEN AND PELVIS WITHOUT IV CONTRAST CLINICAL HISTORY: Left flank pain. COMPARISON STUDY: No priors. TECHNIQUE: CT scan of the abdomen and pelvis is performed from the lung bases to the proximal femora. Images are reviewed in the axial, sagittal, and coronal planes. IV contrast was not administered for this examination as per the referring clinician. A dose lowering technique was utilized adhering to the principles of ALARA. CT DOSE: 861.76 mGy.cm FINDINGS: Lung bases: The heart is normal in size and without pericardial effusion. The lung bases are clear. There is a tiny hiatal hernia. Liver: The unenhanced liver is normal in size, contour, and attenuation. There is no intrahepatic biliary ductal dilatation. Gallbladder: Unremarkable. Spleen: Normal in size and attenuation. Pancreas: Unremarkable. Adrenal glands: Unremarkable. Kidneys: The unenhanced kidneys demonstrate mild cortical atrophy. The left kidney is edematous with perinephric stranding and trace fluid. There is a 9 mm obstructing calculus in the left proximal ureter seen on image #214 at the level of L4. This causes [id number] left-sided hydronephrosis. There are at least 5 additional nonobstructing left renal calculi which measure up to 6 mm. There is a punctate nonshadowing calculus in the lower pole the right kidney. There is no right-sided hydronephrosis. There is no evidence of contour deforming renal mass lesion. Abdominal vasculature: The abdominal aorta is normal in course and caliber noting mild atherosclerotic calcification. Bowel: There is no bowel obstruction. The appendix is not identified and reported surgically absent. Peritoneum: A shunt catheter is coiled in the left pelvis. There is no intraperitoneal free air or abdominal ascites. Lymphadenopathy: None. Pelvic viscera: The bladder, uterus, and adnexa are normal as visualized. Skeletal structures: The skeletal structures are osteopenic. There is lumbosacral spondylosis, with postoperative change from laminectomy and posterior fusion seen from L3 -L5. Degenerative sclerosis is noted in the sacroiliac joints and the pubic symphysis. No lytic or blastic lesions are seen. IMPRESSION: 1. There is a 9 mm obstructing calculus in the left proximal ureter as above. This causes [id number] left-sided hydronephrosis. 2. Additional bilateral nonobstructing renal calculi are present in both kidneys as detailed above. 3. Additional findings as above. PG Care Time/CCT Total # of Minutes Spent Total Time Spent with Patient: Total time spent is greater than 50% in coordination of care (as documented) at patient's floor/unit and/or counseling patient: Coding Level of Care Code 10846 Initial Inpt Care Lvl 3 Diagnoses Ureteral stone N20.1 Dyslipidemia E78.5 Paroxysmal atrial fibrillation I48.0
[2019-09-23] MEDS ORDERED: ACETAMINOPHEN 1000 MG/100 ML IV IV ONE (19:09)
--- NOTE | 2019-09-23 19:16 | Urology Consultation ---
Date of Consultation September 23, 2019 Assessment & Plan (1) Ureteral stone: 9mm left upj stone with hydro and uti with sepsis to OR emergently to drain infected left kidney with cysto and left stent consent given, questions answered. ct shows large stranding around the left kidney. rocephin given in ER await urine cultures hope they are not contaminated as it was a voided specimen and u/a shows epithelial cells on coumadin INR at 3 today will hold tonight as she has not eaten well today at all. Present on Admission?: Yes History of Present Illness Reason for Consultation: stone and uti Requesting Physician: Dena Lopez NP History of Present Illness I am asked by Dena Lopez NP in ER to evaluate and treat patient for uti and obstructing left upj stone. Ct shows stone is creating mild hydro and is 9mm in size., She also has other smaller left kidney stones. She has only occassional utis at baseline. She has had flank pain for a week but though she had a muscle strain. She had nausea today and fevers just the last 90 minutes. her white count was mildly elevated. her urine looks infected. Allergies Allergy/AdvReac Type Severity Reaction Status Date / Time furosemide [From Lasix] Allergy Intermediate Hypotension Verified 09/23/19 16:23 Home Medications Home Medications Medication Instructions Recorded Confirmed Type acetaminophen 500 mg tablet 500 mg PO Q4H PRN tab 03/13/19 09/23/19 History simvastatin 20 mg tablet 20 mg PO QPM #90 tab 04/15/19 09/23/19 Rx lisinopril 20 mg PO QAM 04/20/19 09/23/19 History wrist immobilizer Right #1 ea 05/13/19 09/23/19 Rx Neoprene elbow sleeve compressive #1 ea 05/14/19 09/23/19 Rx warfarin 2 mg tablet 2 mg PO HS #100 tab 06/02/19 09/23/19 Rx warfarin 4 mg tablet 4 mg PO HS #100 tab 06/02/19 09/23/19 Rx flecainide 100 mg tablet 100 mg PO Q12H #180 tab 06/14/19 09/23/19 Rx oxcarbazepine 150 mg tablet 150 mg PO BID 30 Days #60 tab 07/08/19 09/23/19 Rx baclofen 10 mg tablet 10 mg PO QID PRN #120 tab 08/20/19 09/23/19 Rx topiramate 200 mg tablet 200 mg PO BID 30 Days #60 tab 08/24/19 09/23/19 Rx Patient History Medical History Arachnoid cyst Atrial fibrillation on warfarin and flecinaide---follows with Dr. Hartley Essential tremor (Chronic) bilt hands Hearing deficit Hyperlipidemia Hypertension Lumbar radiculopathy (Chronic) On anticoagulant therapy warfarin daily Osteoarthritis Spinal stenosis Trigeminal neuralgia of right side of face Surgical History History of cardiac cath x1--"at least 10yrs ago", no stents History of colonoscopy [place] [facility] [place] that kept getting bigger, causing severe headaches" with 2nd craniotomy put shunt in History of left breast biopsy benign History of lumbar spinal fusion History of tooth extraction all top teeth removed S/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 (Acute) [place] [facility] [place] History Father Family hx of colon cancer COPD (chronic obstructive pulmonary disease) Diabetes Hypertension Uncle Family hx colonic polyps Brother Hypertension Other No family history of adverse response to anesthesia Social History Preferred Language: Macedonian Communication Ability: Effective Medical Examiner Required: No Beliefs That Will Affect Care: None Current Living Situation: Spouse Feels Safe at Home: Yes Smoking Status: Never smoker Second Hand Exposure: Yes (father smoked) ; Hx Alcohol Use: No Hx Substance Use: No Review of Systems Review of Systems: PMH- afib, spione surgery, obesity Surg- spine surgery v-p shunt, removal of brain cyst Allergy - lasix makes her bp go low Soc- no tobacco or alcpohol, lives alone just in Jul 2019, has adult daughters locally Fam hx- no stones ROS- + fevers + chills, + nausea no emesis, no chest pain, no seizures, no rash, bowels fine, no cough or cold. Physical Exam Constitutional: WD/WN, vitals as above + acute distress and + obese rigors and fever to 38.5 Respiratory: normal respiratory effort, lungs clear to auscultation Cardiovascular: RRR, no murmur, no edema Chest (Breasts): normal inspection/palpation of breasts Skin: no rashes, warm and dry Psychiatric: A+Ox3, euthymic affect Results & Data Vital Signs (Past 12 Hours) Vital Signs Temp Pulse Pulse Pulse Resp BP BP 09/23/19 18:46 38.3 C H 86 20 180/81 H 09/23/19 17:53 78 22 144/104 H 09/23/19 16:37 64 14 09/23/19 15:59 36.5 C 68 18 192/90 H Pulse Ox 09/23/19 18:46 95 09/23/19 17:53 96 09/23/19 16:37 97 09/23/19 15:59 97
--- NOTE | 2019-09-23 19:43 | Operative Report ---
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 Her genitals were prepped and draped in sterile fashion. Time out held with team. I placed a 21 fr rigid cystoscope to bladder. The urethra is unremarkable. The UOs are raised stadium shape. There is a mild cystitis. I placed a road runner wire up left ureter and placed a 24 centimeter 6 Fr double J stent easily. There is brisk efflux of very cloudy urine under pressure after placement. I drained some cloudy urine into a specimen cup for specimen. I left bladder empty and concluded case. SHe transferred to recovery under my escort, in stable condition. Plan: 2-3 day hospital stay for iv antibiotics Pyridium for dysuria prn plan for outpatient surgery to remove the infected stones in 1-2 weeks ASA 3e dirty case 5 seconds fluoro rocephin antibiotic in ER I attest to the content of the Intraoperative Record and any orders documented therein. Any exceptions are noted below.
--- NOTE | 2019-09-23 19:44 | Fluoroscopy Report ---
INTRAOPERATIVE RADIOGRAPHS CLINICAL HISTORY: Left ureteral stent placement. Fluoroscopy time: 4 seconds. FINDINGS: 3 spot fluoroscopic views of the left abdomen are correlated with abdominal CT dated 020. The Initial image shows a wire projecting over the left renal pelvis. A peritoneal shunt cathete r is noted on the right. The second 2 images show the proximal end of a left ureteral stent being mary gilbert. Fusion hardware is noted in the lumbar spine. IMPRESSION: Intraoperative images from a left ureter stent placement procedure as above. Electronically signed by: Dustin Barahona M.D. 09/23/2019 7:43 PM
[2019-09-23] MEDS ORDERED: BACLOFEN 10 MG TAB PO PRN (20:17)
--- NOTE | 2019-09-23 20:23 | Anesthesiology Progress Note ---
Date of Service September 23, 2019 Anesthesia Post Procedure Vital Signs Vital Signs: Temp Pulse Pulse Pulse Resp BP BP 09/23/19 20:17 98.8 F 09/23/19 20:15 102.4 F H 89 16 154/78 H 09/23/19 20:00 101.7 F H 86 20 161/79 H 09/23/19 19:55 88 22 163/82 H 09/23/19 19:45 102.0 F H 91 H 16 145/76 H 09/23/19 18:46 100.9 F H 86 20 180/81 H 09/23/19 17:53 78 22 144/104 H 09/23/19 16:37 64 14 09/23/19 15:59 97.7 F 68 18 192/90 H Pulse Ox 09/23/19 20:17 09/23/19 20:15 96 09/23/19 20:00 97 09/23/19 19:55 96 09/23/19 19:45 98 09/23/19 18:46 95 09/23/19 17:53 96 09/23/19 16:37 97 09/23/19 15:59 97 Transfer of Care Handoff Completed per policy Notes Mental Status: alert / awake / arousable and participated in evaluation Patient Amnestic to Procedure: Yes Nausea / Vomiting: adequately controlled Pain: adequately controlled Airway Patency, RR, SpO2: stable & adequate BP & HR: stable & adequate Hydration State: stable & adequate Anesthetic Complications: no major complications apparent and Pt Satisfied with anesthetic care
[2019-09-23 20:49] LABS: INR 2.9 (0.9-1.1); Prothrombin Time 29.3 Seconds (9.0-12.0)
[2019-09-23] MEDS: SODIUM CHLORIDE 0.9% 1000ML 1,000 ML IV SCH (21:24)
[2019-09-23] MEDS: TOPIRAMATE 100 MG TAB PO SCH (21:25)
[2019-09-23] MEDS: FLECAINIDE ACETATE 100 MG TABLET PO SCH (21:25)
[2019-09-23] MEDS: OXcarbazepine 150 MG TABLET PO SCH (21:26)
[2019-09-23] MEDS: SIMVASTATIN 20 MG TAB PO SCH (21:26)
[2019-09-23] MEDS: ACETAMINOPHEN 500 MG TAB PO PRN (21:40)
[2019-09-24 05:41] LABS: Hematocrit (blood only) 36.9 % (37-47); Hemoglobin 11.9 g/dL (12.0-16.0); Mean Corpuscular Hemoglobin 30.4 pg (25-34); Mean Corpuscular Hgb Conc 32.2 g/dL (32-36); Mean Corpuscular Volume 94.4 fL (80-100); Mean Platelet Volume 10.1 fL (7.4-10.4); Platelet Count 269 K/uL (130-400); RDW Coefficient of Variation 13.4 % (11.5-14.5); RDW Standard Deviation 46.1 fL (36.4-46.3); Red Blood Count 3.91 M/uL (4.2-5.4)
[2019-09-24 05:48] LABS: INR 2.7 (0.9-1.1); Prothrombin Time 27.2 Seconds (9.0-12.0)
[2019-09-24 05:58] LABS: Basophils # (auto) 0.02 K/uL (0-0.2); Basophils % (auto) 0.1 %; Eosinophils # (auto) 0.01 K/uL (0-0.5); Eosinophils % (auto) 0.1 %; Immature Granulocytes # (auto) 0.07 K/uL (0.00-0.02); Immature Granulocytes % (auto) 0.4 %; Lymphocytes # (auto) 1.47 K/uL (1.2-3.4); Lymphocytes % (auto) 8.1 %; Monocytes # (auto) 1.52 K/uL (0.11-0.59); Monocytes % (auto) 8.4 %; Neutrophils # (auto) 15.11 K/uL (1.4-6.5); Neutrophils % (auto) 82.9 %
[2019-09-24 06:08] LABS: BUN Creatinine Ratio 17.7 (10-20); Calcium 8.6 mg/dl (8.5-10.1); Creatinine Clr Calc Pharmacy 59.5 ml/min; Est GFR (African American) 61.9; Est GFR (Non-African American) 53.5; Potassium 3.6 mmol/L (3.5-5.1)
--- NOTE | 2019-09-24 07:38 | Urology Progress Note ---
Date of Service September 24, 2019 Assessment & Plan (1) Ureteral stone: 9mm left upj stone with hydro and uti with sepsis POD#1 s/p cysto and left stent INR looks good, resume coumadin usual dose tonight. encouraged her to eat small meals until her appetite improves. White count should start to drop tomorrow. Anticipate home tomorrow is culture resulted and if she is afebrile for 24 hours. had fevers thru most of last evening. plan for day surgery next week to remove the infected left ureteral stone as an outpatient complete 14 days of antibiotics. ambulate in halls often Subjective Patient sitting up in bed. She looks comfortable. She had back pain in her spine due to being in bed. At home she sleeps in a recliner for her back problems. Her urine is clear and not painful to pass. She is currently afebrile. She has little appetite but no nausea. taking lots of water. Review of Systems Review of Systems: + fever, no chest pain no cough, no SoB, no rash, no seizures, no BM Physical Exam Constitutional: WD/WN, vitals as above + obese, healthy appearing, well groomed and cooperative Skin: no rashes, warm and dry Psychiatric: A+Ox3, euthymic affect Results & Data Vital Signs (Past 12 Hours) Vital Signs Temp Pulse Pulse Resp BP Pulse Ox 09/24/19 07:28 37.0 C 70 18 120/71 96 09/24/19 03:26 36.7 C 69 20 131/79 93 09/23/19 22:52 37.0 C 84 16 115/70 95 09/23/19 22:10 37.6 C H 82 16 125/71 94 09/23/19 21:19 37.3 C 86 16 143/84 H 92 09/23/19 20:17 37.1 C 09/23/19 20:15 37.8 C H 86 16 125/75 94 09/23/19 20:00 38.7 C H 86 20 161/79 H 97 09/23/19 19:55 88 22 163/82 H 96 09/23/19 19:45 38.9 C H 91 H 16 145/76 H 98
[2019-09-24] MEDS: ACETAMINOPHEN 500 MG TAB PO PRN ×2 (07:59→19:25)
[2019-09-24] MEDS: OXcarbazepine 150 MG TABLET PO SCH ×2 (08:00→21:30)
[2019-09-24] MEDS: FLECAINIDE ACETATE 100 MG TABLET PO SCH ×2 (08:00→21:31)
[2019-09-24] MEDS: TOPIRAMATE 100 MG TAB PO SCH ×2 (08:00→21:31)
[2019-09-24] MEDS: SODIUM CHLORIDE 0.9% 1000ML 1,000 ML IV SCH ×2 (08:01→10:20)
[2019-09-24] MEDS: cefTRIAXone SODIUM 2,000 MG in DEXTROSE 5% 50 ML/50 ML BAG IV SCH (09:01)
--- NOTE | 2019-09-24 13:40 | Hospitalist Progress Note ---
Date of Service September 24, 2019 Assessment & Plan (1) Ureteral stone: Patient is left-sided 9mm stone in the proximal ureter, causing moderate hydronephrosis and perinephric stranding. Patient was taken the OR on with a left ureteral stent placed. Urine culture preliminarily growing E. coli sensitivities are not returned continues on ceftriaxone Pt initially admitted with concern for sepsis with fever, tachycardia and leukocytosis, sepsis has resolved and now ruled out (2) Dyslipidemia: Patient can continue simvastatin 20 mg as previously noted all of her other outpatient medications. (3) Paroxysmal atrial fibrillation: Patient is on Coumadin INR 3. continue to hold, if additional procedures are needed may consider using lovenox until next procedure before restarting coumadin. Will need to discuss with Dr Valero for timing of anticoagulation. continues on flecanide (4) Hypertension: pt typically takes lisinopril which was held in the situation of lina, her blood pressure is in good condition and will continue to hold Admission and Anticipated Discharge Date Admission Date: September 23, 2019 Subjective Patient is feeling much better she has had some back pain but she feels this is musculoskeletal from a chronic back pain problem in our hospital beds. She has no CVA pain or tenderness. She has no dysuria. She is feeling a little weak and tired after the procedure Review of Systems Review of Systems: Mild distress and moderate fatigue no headache, blurry or double vision no speech or swallowing issues no chest pain, pressure or palpitations no shortness of breath, cough or wheezes no abdominal pain, nausea or vomiting, diarrhea or constipation no dysuria, hematuria or frequency no focal joint pain or swelling Centralized low positional back pain, without CVA tenderness or radicular pain no bruising, bleeding or rashes no focal signs of weakness or numbness or altered sensation no complaints or anxiety or depression Physical Exam Physical Exam: The patient appeared well nourished and normally developed. She is only minor distress Vital signs as documented. Head exam is unremarkable. No scleral icterus Neck is without JVD, thyromegaly, or carotid bruits. Abdominal exam reveals normal bowel sounds, soft no masses, no organomegaly and no aortic enlargement Extremities are nonedematous and both pedal pulses are normal. Neurologic exam is alert and oriented, no focal loss of strength or sensation Skin is without bruises or rashes Psychologically is without concerns for anxiety or depression Results & Data Results & Data ([facility] [place]) Vital Signs (Past 12 Hours) Vital Signs Temp Pulse Resp BP Pulse Ox 09/24/19 12:02 98.4 F 71 18 127/72 98 09/24/19 07:28 98.6 F 70 18 120/71 96 09/24/19 03:26 98.1 F 69 20 131/79 93 PG Care Time/CCT Total # of Minutes Spent Total Time Spent with Patient: Total time spent is greater than 50% in coordination of care (as documented) at patient's floor/unit and/or counseling patient: Coding Level of Care Code 15074 Subseq Hosp Care Lvl 2 Diagnoses Ureteral stone N20.1 Dyslipidemia E78.5 Paroxysmal atrial fibrillation I48.0 Hypertension I10
--- NOTE | 2019-09-24 14:22 | Electrocardiogram Report ---
Test Reason : Blood Pressure : / mmHG Vent. Rate : 087 BPM Atrial Rate : 079 BPM P-R Int : 000 ms QRS Dur : 120 ms QT Int : 386 ms P-R-T Axes : 000 -49 071 degrees QTc Int : 464 ms Poor data quality, interpretation may be adversely affected Likely Sinus rhythm with 1st degree AV block although atrial flutter can be considered Left anterior fascicular block Poor R wave progression, consider anterior IN vs. lead placement vs. LVH Abnormal ECG When compared with ECG of 02-DEC-2012 10:36, Vent. rate has increased BY 29 BPM Sinus rhythm appears to have replaced atrial fibrillation Confirmed by Hong Ayon ([id number]) on 09/24/2019 2:22:02 PM Referred By: REFERRED SELF Confirmed By:Duane Ayon
[2019-09-24] MEDS: LIDOCAINE 5% 1 PATCH TD SCH (15:47)
[2019-09-24] MEDS ORDERED: WARFARIN SOD 6 MG TAB PO SCH (16:00)
[2019-09-24] MEDS ORDERED: SODIUM CHLORIDE 0.65% NA SOLN 45 ML (OCEAN) ONE (19:28)
[2019-09-24] MEDS: SIMVASTATIN 20 MG TAB PO SCH (21:31)
[2019-09-25 06:22] LABS: Calcium 8.4 mg/dl (8.5-10.1); Creatinine Clr Calc Pharmacy 66.9 ml/min; Est GFR (African American) 71.4; Est GFR (Non-African American) 61.6; Potassium 3.2 mmol/L (3.5-5.1)
[2019-09-25] MEDS: OXcarbazepine 150 MG TABLET PO SCH (08:27)
[2019-09-25] MEDS: FLECAINIDE ACETATE 100 MG TABLET PO SCH (08:28)
[2019-09-25] MEDS: LIDOCAINE 5% 1 PATCH TD SCH (08:28)
[2019-09-25] MEDS: cefTRIAXone SODIUM 2,000 MG in DEXTROSE 5% 50 ML/50 ML BAG IV SCH (08:28)
[2019-09-25] MEDS: TOPIRAMATE 100 MG TAB PO SCH (08:28)
[2019-09-25] MEDS ORDERED: POTASSIUM CHLORIDE 20 MEQ TABCR PO STA (10:28)
--- NOTE | 2019-09-25 12:14 | Urology Progress Note ---
Date of Service September 25, 2019 Assessment & Plan (1) Calculus of proximal left ureter: her urine is growing e coli r to amp and unasyn and cefazolin she is going home on oral abt for a 14 day total course may stay on coumadin thru surgery, try to aim for INR 2- 2.5. plan day surgery Wed at 7:15am. Present on Admission?: Yes Subjective She feels well, no fevers, no pain. No blood in urine. Appetite better. 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
--- NOTE | 2019-09-25 18:48 | Discharge Summary ---
Date of Service September 25, 2019 Admission HPI Per Admitting Provider This is a 64-year-old female past medical history of paroxysmal atrial fibrillation on Coumadin, dyslipidemia, and chronic diastolic CHF that presents today complaining of left-sided flank pain. Patient is in some distress secondary to pain, history is limited as the patient is due to be in the OR momentarily. Patient tells me that she was having some mild flank pain over the past 2 days, this worsened significantly on in the morning. She did not have any dysuria. She denied any fevers but she did have chills and is exhibiting significant rigors during the interview. Pain is mostly over the left flank. She has noticed no hematuria on presentation, the patient was given 2 g of Rocephin along with fentanyl 25 mcg for pain. She is, the pain has worsened somewhat has a fentanyl is wearing off. Of note, the urologist was already in the room obtaining consent for ureteral stent placement which is to be done momentarily. Principal Diagnosis Left ureteral stone status post stent placement A. fib with manipulation of anticoagulation during hospital stay E. coli UTI/pyelonephritis associated with kidney stone present on admission Discharge Exam The patient appeared well Vital signs as documented. Lungs are clear to auscultation and percussion. Cardiac exam, Rhythm is regular.. No murmurs, rubs or gallops. Abdominal exam reveals normal bowel sounds, soft non tender, no masses Extremities are nonedematous and both pedal pulses are normal. Neurologic exam is alert and oriented, no focal loss of strength or sensation Skin is without bruises or rashes Psychologically is without concerns for anxiety or depression Discharge Data Allergies Allergy/AdvReac Type Severity Reaction Status Date / Time furosemide [From Lasix] Allergy Intermediate Hypotension Verified 09/23/19 16:23 Consultations 09/23/19 18:22 ED Decision to Admit Stat 09/23/19 21:00 Consult Urology Routine Procedures Performed Operation Date: 09/23/19 19:00 Actual Procedures p Cystoscopy, Left Ureteral Stent Insertion(Left) - Yu Arias MD Ordered Studies 09/23/19 16:09 CT abd pelvis wo con Stat 09/23/19 18:57 FL KUB Routine Hospital Course (1) Ureteral stone: Patient is left-sided 9mm stone in the proximal ureter, causing moderate hydronephrosis and perinephric stranding. Patient was taken the OR on with a left ureteral stent placed. Urine culture preliminarily growing E. coli sensitivities will be covered by Cefdinir, will have on 14 days as has upcoming stone removal, tentatively scheduled for 09/30/19 Pt initially admitted with concern for sepsis with fever, tachycardia and leukocytosis, sepsis has resolved and now ruled out (2) Dyslipidemia: Patient can continue simvastatin 20 mg as previously noted all of her other outpatient medications. (3) Paroxysmal atrial fibrillation: Patient is on Coumadin INR 3. initially was some concern for holding this med at time of discharge, after discharge DR Arias confered with cardiology to continue home coumadin but to have cardiology work to keep INr on the low side of 2-3, Dr Arias informed me that she will take care of notifying the pt of continuing this medicine as contradicted by discharge instructions, continues on flecanide (4) Hypertension: pt typically takes lisinopril which was held in the situation of lina, her blood pressure is in good condition and will continue to hold Total Time Total Time Spent Total Time Spent (In Minutes): It required greater than 30 minutes to prepare this patient for discharge Discharge Plan Discharge Items Patient Disposition: Home - Self-Care Reason For Visit: KIDNEY STONE Discharge Diagnosis: left kidney stone E coli uti Activity: Resume your previous activity Non-emergency contact: Primary Care Provider and Urologist Call non-emergency contact if: you have any medication questions and your symptoms worsen Follow-up/Referrals: Silvestre Osman MD [Hospitalist] - Marco Kirkpatrick MD [Primary Care Provider] - Yu Arias MD [Physician] - Diet: Regular Addtl Attending Provider Instructions: After speaking to Dr arias she feels it will be ok to continue your coumadin as ordered. You are tentatively scheduled for a procedure with Dr. Arias and urology on Saturday, September 29. You should receiving a phone call early next week with instructions regarding her perioperative care. Pending Studies at Discharge: No Stand-Alone Forms: My XIFIN, Smoking Cessation Medications and DC Order Prescriptions: New cefdinir 300 mg capsule 300 mg PO BID 14 Days Qty: 28 RF: 0 Continued acetaminophen 500 mg tablet 500 mg PO Q4H PRN (Reason: fever or pain) RF: 0 simvastatin 20 mg tablet 20 mg PO QPM Qty: 90 RF: 3 flecainide 100 mg tablet 100 mg PO Q12H Qty: 180 RF: 3 oxcarbazepine 150 mg tablet 150 mg PO BID 30 Days Qty: 60 RF: 1 baclofen 10 mg tablet 10 mg PO QID PRN (Reason: Pain) Qty: 120 RF: 0 topiramate 200 mg tablet 200 mg PO BID 30 Days Qty: 60 RF: 5 lisinopril 20 mg tablet 20 mg PO QAM RF: 0 Discontinued warfarin 4 mg tablet 4 mg PO HS Qty: 100 RF: 3 warfarin 2 mg tablet 2 mg PO HS Qty: 100 RF: 3 No Action (DME) Neoprene elbow sleeve compressive Qty: 1 RF: 0 warfarin 4 mg tablet 4 mg PO HS Qty: 100 RF: 3 warfarin 2 mg tablet 2 mg PO HS Qty: 100 RF: 3 (DME) wrist immobilizer Right Qty: 1 RF: 0 Discharge Orders: Discharge Order (Routine); Ordered 09/25/19 Ordered By: Silvestre Cesar/Other Patient Handouts: Kidney Stones Admission Data Admit Date/Time: 09/23/19 19:32 Attending Provider: Silvestre Osman Admit Provider: Tay Kimbrough Primary Care Provider: Marco Kirkpatrick Other Providers: Tay Kimbrough ; Yu Arias Other Interventions: Discharge Summary Assessment (RN) Last Done: 09/25/19 11:20 DC Date/Time DO NOT enter until pt leaves facility: 09/25/19 12:08 Coding Level of Care Code D/C Day Management >30 mins Diagnoses Ureteral stone N20.1 Dyslipidemia E78.5 Paroxysmal atrial fibrillation I48.0 Hypertension I10
== END 2019-09-25 12:08 | disposition home or self-care (01) | DRG 660 ==
LOC: ED 15:52 → OR 18:34 → 3E 19:32 → SUATTDRO 19:32

== ENCOUNTER 2024-02-23 14:39 | Inpatient (IN) ==
[2024-02-23 15:43] LABS: Basophils # (auto) 0.03 K/uL (0.00-0.20); Basophils % (auto) 0.4 %; Eosinophils # (auto) 0.19 K/uL (0.00-0.50); Eosinophils % (auto) 2.5 %; Hematocrit (blood only) 36.4 % (37.0-47.0); Hemoglobin 12.4 g/dl (12.0-16.0); Immature Granulocytes # (auto) 0.03 K/uL (0.01-0.20); Immature Granulocytes % (auto) 0.4 %; Lymphocytes # (auto) 1.98 K/uL (1.20-3.40); Mean Corpuscular Hemoglobin 31.5 pg (25.0-34.0); Mean Corpuscular Hgb Conc 34.1 g/dL (32.0-36.0); Mean Corpuscular Volume 92.4 fL (80.0-100.0); Mean Platelet Volume 8.8 fL (9.4-12.4); Monocytes # (auto) 0.61 K/uL (0.11-0.59); Neutrophils # (auto) 4.78 K/uL (1.40-6.50); Neutrophils % (auto) 62.7 %; Platelet Count 256 K/uL (130-400); RDW Coefficient of Variation 12.7 % (11.5-14.5); RDW Standard Deviation 43.2 fL (36.4-46.3); Red Blood Count 3.94 M/uL (4.20-5.40); White Blood Count 7.62 K/ul (4.8-10.8)
[2024-02-23 15:57] LABS: Albumin Globulin Ratio 1.8 (0.9-2); Albumin Level 4.4 gm/dl (3.4-5.0); BUN Creatinine Ratio 18.1 (10-20); Bilirubin,Total 0.3 mg/dl (0.2-1.0); Calcium 9.1 mg/dl (8.6-10.3); Creatinine Clr Calc Pharmacy 68.1 ml/min; Est GFR (African American) 82.8 ml/min; Est GFR (Non-African American) 71.4 ml/min; Globulin 2.5 gm/dl (2.5-4.0); Potassium 3.8 mmol/L (3.5-5.1); Total Protein 6.9 gm/dl (6.0-8.3)
[2024-02-23 16:54] LABS: Appearance Urine Clear (Clear); Bacteria Urine Automated None Seen (None Seen); Bilirubin Urine Negative (Negative); Blood Urine Negative (Negative); Cast Urine Automated 0-2 /lpf (0-2); Color Urine Yellow; Glucose Urine UA Negative (Negative); Ketones Urine Negative (Negative); Leukocyte Esterase Urine 1+ (Negative); Nitrite Urine Negative (Negative); Protein Urine Negative (Negative); Specific Gravity Urine 1.024 (1.000-1.030); Urobilinogen Urine Negative (Negative); WBC Urine Automated 21-50 /hpf (0-5); pH Urine 5.5 (4.5-7.5)
--- NOTE | 2024-02-23 17:28 | Emergency Department Note ---
Impression & Plan Rectal bleeding, Ureteral stone, Colitis, Anticoagulated on Coumadin, Renal colic ED Provider Note NAME: SAYDA MCELROY AGE: 68 SEX: F : 1955 ARRIVES VIA: Walk-In INFORMANT: [Patient] ED PROVIDER(S): [Dustin Hubbard MD] CHIEF COMPLAINT: Diarrhea HISTORY OF PRESENT ILLNESS: The patient is a 68-year-old female who states that last evening, she felt the need to have a bowel movement. When she was in the bathroom, she was sweaty, felt faint and had severe abdominal pain. She had a soft bowel movement, then diarrhea and then blood. She states that today, there has been no more diarrhea or rectal bleeding however, she still has some colicky crampy abdominal pain. There was no fever, no nausea or vomiting. She has no chest pain. The patient is on warfarin, her last INR check was therapeutic a few weeks ago. The patient states that she was told that she had diverticulitis the last time she had abdominal pain and rectal bleeding. Of note, the patient spoke with her doctors office, she was referred to our ER. PMHx/PSHx/Social Hx: See Below PHYSICAL EXAM: GENERAL: Patient is in no acute distress. HEENT: No acute trauma, normocephalic atraumatic, mucous membranes moist, no nasal congestion. NECK: No stridor, no adenopathy, no meningismus, trachea is midline. LUNGS: Clear to auscultation bilaterally, no wheeze, no rhonchi, breath sounds equal. HEART: 1/6 systolic murmur, regular rate and rhythm. ABDOMEN: Soft, nontender, no peritonitis. EXTREMITIES: No cyanosis, full range of motion of all the joints without pain or difficulty. NEUROLOGIC: Oriented x 3, no acute motor or sensory deficits, no focal weakness. SKIN: No jaundice, no diaphoresis. Rectal: No bright red blood per rectum. Stool is brown. No mass. DIFFERENTIAL DIAGNOSIS: Diverticular bleeding, hemorrhoidal bleeding, diverticulitis, coagulopathy, anemia, foodborne or viral illness, among others. EMERGENCY DEPARTMENT PROCEDURES: MEDICAL DECISION MAKING: There is no leukocytosis or worrisome anemia. There is a normal platelet count. INR is elevated but therapeutic for someone using warfarin. Sodium slightly low at 132. No renal failure. No concerning liver enzyme elevation. No evidence for pancreatitis. Urinalysis was suggestive of potential infection. Abdominal and pelvis CT shows colitis as well as a right ureteral stone. The stone was in the proximal ureter and there was some ureteral obstruction. On exam, the patient was comfortable. She was not febrile or toxic. Rectal exam did not show bright red bleeding. I spoke with Dr. Sparks of urology. Patient was not in need of emergent urologic intervention this evening. Antibiotics were suggested. The patient did have a bout of rectal bleeding while here in the ED. This occurred sometime after my rectal exam. With the findings of ureteral obstruction, with her Coumadin use, with the recurrent rectal bleeding, I do think a hospital stay is warranted. Observation, monitoring is needed. The patient was given IV ceftriaxone as antibiotic coverage. I did speak with the patient and case management. The on-call hospitalist was consulted. Prior/Outside records/notes reviewed: None Imaging/x-ray results per my interpretation: Chronic Medical/Social conditions affecting care: Advanced age, warfarin use. Care/Management discussed with: Case management, the on-call hospitalist. Urology on-call-Dr. Sparks. 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 Left knee pain S/P ureteral stent placement Nephrolithiasis Obstructive uropathy Family history of colon cancer Trigger finger of right hand UTI (urinary tract infection) Hematuria Heartburn Calculus of proximal left ureter (Acute) 03/2022 Ureteral stone Medial epicondylitis, right elbow Chronic diastolic (congestive) heart failure (Acute) Constipation (Acute) Dyslipidemia (Acute) Hydrocephalus (Acute) Hypertension (Acute) Mitral regurgitation (Acute) Trigeminal neuralgia (Chronic) 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 Sepsis hx 2019--Treated at [facility] for urosepsis 2/ obstructing stone. Urgent stent insertion 09/22. Osteoarthritis On anticoagulant therapy warfarin daily Trigeminal neuralgia of right side of face Hearing deficit bilat. AGUILERA's Hyperlipidemia Hypertension Surgical History (Updated 02/19/24 @ 13:44 by Taco Pearl MD) History of cystoscopy WITH STENT PLACED; stent removed later History of craniotomy x2 @ [facility] [place] "benign cyst in brain that kept getting bigger, causing severe headaches" with 2nd craniotomy put shunt in History of left breast biopsy benign History of lumbar spinal fusion History of colonoscopy History of tooth extraction all top teeth removed History of cardiac cath x1--2004 @ [facility]--no stents Family History Father Family hx of colon cancer COPD (chronic obstructive pulmonary disease) Diabetes Hypertension Colorectal cancer Uncle Family hx colonic polyps Brother Hypertension Other No family history of adverse response to anesthesia Denies family history of Ovarian cancer Prostate cancer Myocardial infarction Breast cancer Social History Smoking Status: Never smoker Second Hand Exposure: No; Do You Dip or Chew Tobacco: No; Hx Alcohol Use: No Hx Substance Use: No Preferred Language: Latvian Communication Ability: Effective Visual Impairment: Partially Limited Hearing Ability: Use of Hearing Aid Traffic Enumerator Required: No Beliefs That Will Affect Care: None marital status: / Current Living Situation: Family Current Living Situation Comment: lives with grandson current occupational status: retired How many Children do You have: 2 Other Information That Helps Us Care for You: No Feels Safe at Home: Yes Safety Concerns: Feels Safe At This Time Childhood Exposure to Second-Hand Smoke: Yes Diet: regular caffeine: No Dental Care, Regularly: No Physical Activity Frequency: Does not Exercise Seatbelt Use: always Sunscreen Use: Yes Do you think of yourself as: straight/heterosexual Gender Identity: Female Assistive Devices: Glasses Allergies Allergies Allergy/AdvReac Type Severity Reaction Status Date / Time hydrochlorothiazide Allergy Mild Rash Verified 01/20/24 13:17 Home Meds Home Medications Medication Instructions Recorded Confirmed zinc 50 mg tablet 50 mg PO QPM 01/31/22 02/23/24 mecobalamin (vitamin B12) 1,000 2,000 mcg PO QAM 04/04/22 02/23/24 mcg chewable tablet ascorbic acid (vitamin C) 250 mg 250 mg PO QAM 05/23/23 02/23/24 tablet (Vitamin C) Previous Rx's Medication Instructions Recorded atorvastatin 40 mg tablet 40 mg PO HS #90 tabs 06/17/23 flecainide 100 mg tablet 100 mg PO BID #180 tabs 06/24/23 famotidine 20 mg tablet 20 mg PO HS #90 tabs 07/26/23 amlodipine 5 mg tablet 5 mg PO QAM #90 tabs 09/02/23 oxcarbazepine 300 mg tablet 900 mg (3 x 300 mg) PO BID 30 days 10/14/23 #180 tabs furosemide 40 mg tablet 40 mg PO QPM #90 tabs 10/29/23 amlodipine 5 mg-benazepril 20 mg 1 cap PO QAM #30 caps 12/17/23 capsule warfarin 2 mg tablet 2 mg PO HS #100 tabs 01/13/24 warfarin 4 mg tablet 4 mg PO HS #100 tabs 01/13/24 omeprazole 20 mg capsule,delayed 20 mg PO DAILY #30 caps 01/31/24 release Results & Data (ED) Vital Signs Vital Signs - 24 hr 02/23/24 14:55 02/23/24 16:42 02/23/24 16:50 Temperature 36.5 C Temperature Source Temporal Artery Scan Pulse Rate 72 60 57 L Respiratory Rate 16 15 Respiratory Effort / Characteristics Non-Labored Spontaneous Respiratory Depth Normal Blood Pressure 150/79 H Blood Pressure Mean 102 Blood Pressure Position Sitting Pulse Oximetry 97 98 Oxygen Delivery Method Room Air Sepsis Recent Fever Within 48 Hours No Sepsis New/Unexplained Change in Mental Status N/A Sepsis Action Taken by Nursing No Action Required 02/23/24 18:33 Temperature Temperature Source Pulse Rate 62 Respiratory Rate 16 Respiratory Effort / Characteristics Respiratory Depth Blood Pressure 168/81 H Blood Pressure Mean 110 Blood Pressure Position Pulse Oximetry 98 Oxygen Delivery Method Room Air Sepsis Recent Fever Within 48 Hours Sepsis New/Unexplained Change in Mental Status Sepsis Action Taken by Intermediate Medications Current Medication List: was personally reviewed by me Laboratory Data Attestation: I reviewed the patient's lab results. 02/23/24 15:25 02/23/24 15:25 Lab Results 02/23/24 02/23/24 Range/Units 15:25 16:42 WBC 7.62 (4.8-10.8) K/ul RBC 3.94 L (4.20-5.40) M/uL Hgb 12.4 (12.0-16.0) g/dl Hct 36.4 L (37.0-47.0) % MCV 92.4 (80.0-100.0) fL MCH 31.5 (25.0-34.0) pg MCHC 34.1 (32.0-36.0) g/dL RDW Std Deviation 43.2 (36.4-46.3) fL RDW Coeff of Twyla 12.7 (11.5-14.5) % Plt Count 256 (130-400) K/uL MPV 8.8 L (9.4-12.4) fL Immature Gran % (Auto) 0.4 % Neut % (Auto) 62.7 % Lymph % (Auto) 26.0 % [place] % (Auto) 8.0 % Eos % (Auto) 2.5 % Baso % (Auto) 0.4 % Neut # (Auto) 4.78 (1.40-6.50) K/uL Lymph # (Auto) 1.98 (1.20-3.40) K/uL [place] # (Auto) 0.61 H (0.11-0.59) K/uL Eos # (Auto) 0.19 (0.00-0.50) K/uL Baso # (Auto) 0.03 (0.00-0.20) K/uL Immature Gran # (Auto) 0.03 (0.01-0.20) K/uL PT 22.4 H (9.0-12.0) Seconds INR 2.2 H (0.9-1.1) APTT 44 H (21-31) Seconds PTT Ratio 1.6 Sodium 132 L (136-145) mmol/L Potassium 3.8 (3.5-5.1) mmol/L Chloride 99 (98-107) mmol/L Carbon Dioxide 27 (21-32) mmol/L Anion Gap 6 (3-11) BUN 15 (6-23) mg/dl Creatinine 0.83 (0.6-1.2) mg/dl Est Cr Clr Drug Dosing 68.1 ml/min Est GFR ( Amer) 82.8 ml/min Est GFR (Non-Af Amer) 71.4 ml/min BUN/Creatinine Ratio 18.1 (10-20) Glucose 110 H (70-99(Fasting)) mg/dl Calcium 9.1 (8.6-10.3) mg/dl Total Bilirubin 0.3 (0.2-1.0) mg/dl AST 15 (13-39) U/L ALT 15 (7-52) U/L Alkaline Phosphatase 84 (34-104) U/L Total Protein 6.9 (6.0-8.3) gm/dl Albumin 4.4 (3.4-5.0) gm/dl Globulin 2.5 (2.5-4.0) gm/dl Albumin/Globulin Ratio 1.8 (0.9-2) Lipase 44 (11-82) U/L Urine Color Yellow Urine Appearance Clear (Clear) Urine pH 5.5 (4.5-7.5) Ur Specific [place] 1.024 (1.000-1.030) Urine Protein Negative (Negative) Urine Glucose (UA) Negative (Negative) Urine Ketones Negative (Negative) Urine Blood Negative (Negative) Urine Nitrite Negative (Negative) Urine Bilirubin Negative (Negative) Urine Urobilinogen Negative (Negative) Ur Leukocyte Esterase 1+ H (Negative) Urine WBC (Auto) 21-50 H (0-5) /hpf Urine RBC (Auto) 6-10 H (0-2) /hpf U Hyaline Cast (Auto) 0-2 (0-2) /lpf U Epithel Cells (Auto) 3-5 H (0-2) /hpf Urine Bacteria (Auto) None Seen (None Seen) Administered Medications Discontinued Medications Ceftriaxone Sodium (Rocephin) 2,000 mg in 50 mls @ 100 mls/hr IV NOW STA Stop: 02/23/24 19:14 Last Infusion: 02/23/24 19:54 Dose: Infused Documented By: Admin: 02/23/24 19:07 Dose: 100 mls/hr Documented By: LIN Ioversol (Optiray 320 100ml) 94 ml IV ONCE ONE Stop: 02/23/24 17:33 Last Admin: 02/23/24 17:32 Dose: 94 ml Documented By: EDK Imaging Data Radiologist's Impression: Abdomen/Pelvis CT 02/23/24 17:10 CT OF THE ABDOMEN AND PELVIS WITH CONTRAST CLINICAL HISTORY: Abdominal pain. Possible diverticulitis. COMPARISON STUDY: CT of the abdomen and pelvis January 21, 2024. Renal ultrasound February 05, 2024. TECHNIQUE: Following IV administration of 94 mL of Optiray, axial images of the abdomen and pelvis were obtained from the lung bases to the proximal femurs. Images were reviewed in the axial, sagittal, and coronal planes. IV contrast was administered without complication. Automated exposure control was utilized for the study. A dose lowering technique was utilized adhering to the principles of ALARA. CT DOSE: 1262.99 mGy.cm FINDINGS: Lung bases are unremarkable. Visualized portions of a DEBT MANAGEMENT COUNSELOR shunt catheter are intact. There is no pneumatosis, free air or portal venous gas. A few subcapsular hypodense hepatic lesions favor cysts. There is no biliary or pancreatic ductal dilatation. Small hiatal hernia. Spleen, adrenal glands and pancreas are unremarkable. 6 mm proximal right ureteral calculus results in minimal right collecting system dilatation. Bilateral renal calculi measure up to 6 mm. There are no left ureteral calculi. There is mild wall thickening of the descending colon and sigmoid colon. There is mild stranding adjacent to the sigmoid colon. There is no free air or abscess. There is no evidence for acute diverticulitis. The appendix is normal. Major vasculature is patent. There are no fluid collections. There is no lymphadenopathy. No acute fractures are present. L3-L5 decompression and fusion is noted. IMPRESSION: 1. Mild wall thickening of the descending colon and sigmoid colon with mild pericolonic stranding. This represents a nonspecific colitis. No free air or abscess. 2. 6 mm minimally obstructing proximal right ureteral calculus. Mild right collecting system dilatation. 3. Bilateral nephrolithiasis. 4. No bowel obstruction. ACT 112: Negative or not required by law. Electronically signed by: Alf Messina M.D. 02/23/2024 5:50 PM Discharge Plan Visit Data Chief Complaint: Diarrhea Stated Complaint: BLOOD IN STOOL ED Provider: Feese,Dustin J Discharge Problem: Rectal bleeding, Ureteral stone, Colitis, Anticoagulated on Coumadin, Renal colic Patient Disposition: Admitted As Inpatient Condition: Fair Discharge Instructions Interventions: ED Discharge Assessment Last Done: 02/23/24 20:26
[2024-02-23] MEDS: OPTIRAY 320 100ml IV ONE (17:32)
--- NOTE | 2024-02-23 17:53 | CT Scan Report ---
CT OF THE ABDOMEN AND PELVIS WITH CONTRAST CLINICAL HISTORY: Abdominal pain. Possible diverticulitis. COMPARISON STUDY: CT of the abdomen and pelvis January 21, 2024. Renal ultrasound February 05, 2024. TECHNIQUE: Following IV administration of 94 mL of Optiray, axial images of the abdomen and pelvis we re obtained from the lung bases to the proximal femurs. Images were reviewed in the axial, sagittal, and coronal planes. IV contrast was administered without complication. Automated exposure control wa s utilized for the study. A dose lowering technique was utilized adhering to the principles of ALARA . CT DOSE: 1262.99 mGy.cm FINDINGS: Lung bases are unremarkable. Visualized portions of a GUIDANCE CONSULTANT shunt catheter are intact. There i s no pneumatosis, free air or portal venous gas. A few subcapsular hypodense hepatic lesions favor cy sts. There is no biliary or pancreatic ductal dilatation. Small hiatal hernia. Spleen, adrenal glands and pancreas are unremarkable. 6 mm proximal right ureteral calculus results in minimal right collec ting system dilatation. Bilateral renal calculi measure up to 6 mm. There are no left ureteral calcul i. There is mild wall thickening of the descending colon and sigmoid colon. There is mild stranding a djacent to the sigmoid colon. There is no free air or abscess. There is no evidence for acute diverti culitis. The appendix is normal. Major vasculature is patent. There are no fluid collections. There i s no lymphadenopathy. No acute fractures are present. L3-L5 decompression and fusion is noted. IMPRESSION: 1. Mild wall thickening of the descending colon and sigmoid colon with mild pericolonic stranding. Th is represents a nonspecific colitis. No free air or abscess. 2. 6 mm minimally obstructing proximal right ureteral calculus. Mild right collecting system dilatati on. 3. Bilateral nephrolithiasis. 4. No bowel obstruction. ACT 112: Negative or not required by law. Electronically signed by: Alf Messina M.D. 02/23/2024 5:50 PM
[2024-02-23 17:56] LABS: INR 2.2 (0.9-1.1); Partial Thromboplastin Ratio 1.6; Partial Thromboplastin Time 44 Seconds (21-31); Prothrombin Time 22.4 Seconds (9.0-12.0)
[2024-02-23] MEDS: cefTRIAXone SODIUM 2,000 MG/50 ML BAG IV STA (19:07)
--- NOTE | 2024-02-23 19:48 | History & Physical Report ---
Date of Service February 23, 2024 Assessment & Plan (1) Colitis: Plan: Ischemic vs. inflammatory vs. infectious Stool + c. diff PCR Bloody diarrhea with diffuse abdominal pain concerning for ischemic NPO, IV fluids, antibiotics (ceftriaxone + metronidazole) Consult gastroenterology (2) Hematochezia: Plan: Suspected secondary to colitis, hold warfarin (3) Melena: Plan: This has resolved but given treatment with omeprazole and famotidine and no prior EGD would consider doing this at the same time as a colonoscopy if that is planned (4) Ureteral stone: Plan: Suspect this is incidental. She is having no right sided renal colic pain. Previous obstructed on CT in January but did not see obstruction on follow up US renal. Rather than passing it I suspect it is intermittently obstructing but given she was essentially assymptomatic when fully obstructing on CT January 20 I do not suspect this is the cause of her pain. Especially because her pain was associated with hematochezia. Irregardless this stone will need definitive management at some stage and will consult urology to discuss tratment with her (5) Abnormal urinalysis: Plan: Low suspicion of UTI at this time No need for antibiotics for this reason Follow up urine culture (6) Paroxysmal atrial fibrillation: Plan: Hold warfarin for anticoagulation due hematochezia Plan VTE Prophylaxis - SCDs, hold warfarin Diet -NPO Disposition - observation to med/tele Admission and Anticipated Discharge Date Admission Date: February 23, 2024 History of Present Illness Chief Complaint: Bloody diarrhea Primary Care Provider: Kailyn Bravo DO Liliana Olson is a 68 year old female who presents to the ER due to bloody diarrhea, presyncope and abdominal pain. She reports sudden onset generalized abdominal pain without radiation starting around 7-7:30pm last night, associated diaphoresis (lasted for 30 minutes, nausea and felt she had to have a BM. She had a soft BM then diarrhea, then bright red blood. The pain lasted the rest of the night for which she used a heating pad but has now mostly resolved. This is the second episode very similar to this - again it occurred on January 15. At the time it was left sided abdominal pain. She went to the ER in [place] with the main symptoms of presyncope and had lab work but no imaging and was discharged back to her PCP. Her symptoms had mostly resolved except a lingering mild abdominal pain when she saw her PCP on January 20. Exam revealed LLQ pain and she underwent a CT due to concern for possible diverticulitis. This showed a non specific colitis and an obstructing right proximal ureterolithiasis with hydronephrosis. However she reports having no right sided pain at that time and PCP note from the time confirmed her pain was LLQ. She follow up ultrasound showed this stone was no longer obstructing and the assumption was that she passed it. She has had lingering mild pain since but only suddenly got worse again last night and the hematochezia is new this time. She also notes being on both omeprazole and famotidine for reflux and this not fully controlling her symptoms sometimes. She had some melena at the beginning of February for 3-4 days but reports this has now resolved. Last colonoscopy was in [address] Mccormack showing multiple small mouthed diverticula and non bleeding internal hemorrhoids but no polyps. Allergies Allergy/AdvReac Type Severity Reaction Status Date / Time hydrochlorothiazide Allergy Mild Rash Verified 01/20/24 13:17 Home Medications Medication Instructions Recorded Confirmed Type zinc 50 mg tablet 50 mg PO QPM 01/31/22 02/23/24 History mecobalamin (vitamin B12) 1,000 2,000 mcg PO QAM 04/04/22 02/23/24 History mcg chewable tablet ascorbic acid (vitamin C) 250 mg 250 mg PO QAM 05/23/23 02/23/24 History tablet (Vitamin C) atorvastatin 40 mg tablet 40 mg PO HS #90 tabs 06/17/23 02/23/24 Rx flecainide 100 mg tablet 100 mg PO BID #180 tabs 06/24/23 02/23/24 Rx famotidine 20 mg tablet 20 mg PO HS #90 tabs 07/26/23 02/23/24 Rx amlodipine 5 mg tablet 5 mg PO QAM #90 tabs 09/02/23 02/23/24 Rx oxcarbazepine 300 mg tablet 900 mg (3 x 300 mg) PO BID 30 days 10/14/23 02/23/24 Rx #180 tabs furosemide 40 mg tablet 40 mg PO QPM #90 tabs 10/29/23 02/23/24 Rx amlodipine 5 mg-benazepril 20 mg 1 cap PO QAM #30 caps 12/17/23 02/23/24 Rx capsule warfarin 2 mg tablet 2 mg PO HS #100 tabs 01/13/24 02/23/24 Rx warfarin 4 mg tablet 4 mg PO HS #100 tabs 01/13/24 02/23/24 Rx omeprazole 20 mg capsule,delayed 20 mg PO DAILY #30 caps 01/31/24 02/23/24 Rx release Past Med/Surg History Problem List (Updated 02/24/24 @ 07:32 by Juan Jose Vazquez MD) Hematochezia Melena Abnormal urinalysis Colitis Low back pain radiating to left lower extremity History of lumbar fusion December 11, 2012, L345 Black stools Trigger finger Vulvitis Acute sinusitis Cough Complex renal cyst AAA (abdominal aortic aneurysm) Found on LDCT 08/2022 3.0 x 3.1cm 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 Left knee pain S/P ureteral stent placement Nephrolithiasis Obstructive uropathy Family history of colon cancer Trigger finger of right hand UTI (urinary tract infection) Hematuria Heartburn Calculus of proximal left ureter (Acute) 03/2022 Ureteral stone Medial epicondylitis, right elbow Chronic diastolic (congestive) heart failure (Acute) Constipation (Acute) Dyslipidemia (Acute) Hydrocephalus (Acute) Hypertension (Acute) Mitral regurgitation (Acute) 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 Hartley Spinal stenosis Hip bursitis, left Low back pain Arachnoid cyst S/P THERMAL CUTTER HAND shunt 2004 @ [facility] [place] Essential tremor (Chronic) Lumbar radiculopathy (Chronic) Medical History History of COVID-2020--mild symptoms, resolved. Sepsis hx 2019--Treated at [facility] for urosepsis 2/2 obstructing stone. Urgent stent insertion 09/22. Osteoarthritis On anticoagulant therapy warfarin daily Trigeminal neuralgia of right side of face Hearing deficit bilat. AGUILERA's Hyperlipidemia Hypertension Surgical History (Updated 02/19/24 @ 13:44 by Taco Pearl MD) History of cystoscopy WITH STENT PLACED; stent removed later History of craniotomy x2 @ [facility] [place] "benign cyst in brain that kept getting bigger, causing severe headaches" with 2nd craniotomy put shunt in History of left breast biopsy benign History of lumbar spinal fusion History of colonoscopy History of tooth extraction all top teeth removed History of cardiac cath x1--2004 @ [facility]--no stents Family History Father Family hx of colon cancer COPD (chronic obstructive pulmonary disease) Diabetes Hypertension Colorectal cancer Uncle Family hx colonic polyps Brother Hypertension Other No family history of adverse response to anesthesia Denies family history of Ovarian cancer Prostate cancer Myocardial infarction Breast cancer Social History Smoking Status: Never smoker Second Hand Exposure: No; Do You Dip or Chew Tobacco: No; Hx Alcohol Use: No Hx Substance Use: No Preferred Language: Marshallese Communication Ability: Effective Visual Impairment: Partially Limited Hearing Ability: Use of Hearing Aid French Polisher Required: No Beliefs That Will Affect Care: None marital status: / Current Living Situation: Family Current Living Situation Comment: lives with grandson current occupational status: retired How many Children do You have: 2 Other Information That Helps Us Care for You: No Feels Safe at Home: Yes Safety Concerns: Feels Safe At This Time Childhood Exposure to Second-Hand Smoke: Yes Diet: regular caffeine: No Dental Care, Regularly: No Physical Activity Frequency: Does not Exercise Seatbelt Use: always Sunscreen Use: Yes Do you think of yourself as: straight/heterosexual Gender Identity: Female Assistive Devices: Glasses Review of Systems Review of Systems: All systems reviewed & are unremarkable except as noted in HPI & below Physical Exam Constitutional: WD/WN, vitals as above Eyes: PERRL, conjunctivae normal, anicteric sclerae ENMT: external ear and nose normal, oropharynx normal Respiratory: normal respiratory effort, lungs clear to auscultation Cardiovascular: RRR, no murmur, no edema Gastrointestinal (Abdomen): Inspection/Auscultation: abdomen normal to inspection; abdomen not distended Percussion/Palpation: + abdomen tender (mild LLQ tenderness) and abdomen soft; no guarding and abdomen not rigid Musculoskeletal: no cyanosis or clubbing, extremities motor strength 5/5 Skin: no rashes, warm and dry Neurologic: moves all extremities and awake; not confused Psychiatric: A+Ox3, euthymic affect Genitourinary: no CVA tenderness Results & Data Results & Data Vital Signs (Past 12 Hours) Vital Signs Temp Pulse Resp BP Pulse Ox O2 Del Method 02/23/24 18:33 62 16 168/81 H 98 Room Air 02/23/24 16:50 57 L 02/23/24 16:42 60 15 98 02/23/24 14:55 36.5 C 72 16 150/79 H 97 Room Air Laboratory Results Abnormal lab results 02/23/24 02/23/24 Range/Units 15:25 16:42 RBC 3.94 L (4.20-5.40) M/uL Hct 36.4 L (37.0-47.0) % MPV 8.8 L (9.4-12.4) fL [place] # (Auto) 0.61 H (0.11-0.59) K/uL PT 22.4 H (9.0-12.0) Seconds INR 2.2 H (0.9-1.1) APTT 44 H (21-31) Seconds Sodium 132 L (136-145) mmol/L Glucose 110 H (70-99(Fasting)) mg/dl Ur Leukocyte Esterase 1+ H (Negative) Urine WBC (Auto) 21-50 H (0-5) /hpf Urine RBC (Auto) 6-10 H (0-2) /hpf U Epithel Cells (Auto) 3-5 H (0-2) /hpf Diagnostic Findings CT OF THE ABDOMEN AND PELVIS WITH CONTRAST CLINICAL HISTORY: Abdominal pain. Possible diverticulitis. COMPARISON STUDY: CT of the abdomen and pelvis January 21, 2024. Renal ultrasound February 05, 2024. TECHNIQUE: Following IV administration of 94 mL of Optiray, axial images of the abdomen and pelvis were obtained from the lung bases to the proximal femurs. Images were reviewed in the axial, sagittal, and coronal planes. IV contrast was administered without complication. Automated exposure control was utilized for the study. A dose lowering technique was utilized adhering to the principles of ALARA. CT DOSE: 1262.99 mGy.cm FINDINGS: Lung bases are unremarkable. Visualized portions of a THERMAL CUTTER HAND shunt catheter are intact. There is no pneumatosis, free air or portal venous gas. A few subcapsular hypodense hepatic lesions favor cysts. There is no biliary or pancreatic ductal dilatation. Small hiatal hernia. Spleen, adrenal glands and pancreas are unremarkable. 6 mm proximal right ureteral calculus results in minimal right collecting system dilatation. Bilateral renal calculi measure up to 6 mm. There are no left ureteral calculi. There is mild wall thickening of the descending colon and sigmoid colon. There is mild stranding adjacent to the sigmoid colon. There is no free air or abscess. There is no evidence for acute diverticulitis. The appendix is normal. Major vasculature is patent. There are no fluid collections. There is no lymphadenopathy. No acute fractures are present. L3-L5 decompression and fusion is noted. IMPRESSION: 1. Mild wall thickening of the descending colon and sigmoid colon with mild pericolonic stranding. This represents a nonspecific colitis. No free air or abscess. 2. 6 mm minimally obstructing proximal right ureteral calculus. Mild right collecting system dilatation. 3. Bilateral nephrolithiasis. 4. No bowel obstruction. Medications Administered ER medications given: Ceftriaxone 2000 mg IV Code Status & VTE Plan Code Status Full VTE Prophylaxis Plan VTE Prophylaxis will be ordered: Yes PG Care Time/CCT Total # of Minutes Spent Total Time Spent with Patient: Total time spent is greater than 50% in coordination of care (as documented) at patient's floor/unit and/or counseling patient: Coding Level of Care Code 64430 INT INP/OBS CARE 375MIN Diagnoses Colitis K52.9 Hematochezia K92.1 Melena K92.1 Ureteral stone N20.1 Abnormal urinalysis R82.90 Paroxysmal atrial fibrillation I48.0
[2024-02-23] MEDS: ATORVASTATIN 40 MG TAB PO SCH (22:35)
[2024-02-23] MEDS: OXcarbazepine 150 MG TABLET PO SCH (22:36)
[2024-02-23] MEDS: FLECAINIDE ACETATE 100 MG TABLET PO SCH (22:38)
[2024-02-23] MEDS: PANTOprazole 40 MG in SYRINGE 0 ML IV SCH (22:39)
[2024-02-23] MEDS: LACTATED RINGER'S 1,000 ML IV SCH (22:39)
[2024-02-23] MEDS: FAMOTIDINE 20MG IV PUSH 20 MG/5 ML SYR IV SCH (22:39)
[2024-02-23] MEDS: metroNIDAZOLE 500 MG/100 ML BAG IV SCH (22:46)
[2024-02-23] MEDS: ACETAMINOPHEN 500 MG TAB PO PRN (22:51)
[2024-02-24 07:55] LABS: Basophils # (auto) 0.03 K/uL (0.00-0.20); Basophils % (auto) 0.7 %; Eosinophils # (auto) 0.21 K/uL (0.00-0.50); Eosinophils % (auto) 4.6 %; Hematocrit (blood only) 31.6 % (37.0-47.0); Immature Granulocytes # (auto) 0.01 K/uL (0.01-0.20); Immature Granulocytes % (auto) 0.2 %; Lymphocytes # (auto) 1.39 K/uL (1.20-3.40); Lymphocytes % (auto) 30.2 %; Mean Corpuscular Hemoglobin 31.8 pg (25.0-34.0); Mean Corpuscular Hgb Conc 34.8 g/dL (32.0-36.0); Mean Corpuscular Volume 91.3 fL (80.0-100.0); Monocytes # (auto) 0.37 K/uL (0.11-0.59); Neutrophils # (auto) 2.59 K/uL (1.40-6.50); Neutrophils % (auto) 56.3 %; Platelet Count 221 K/uL (130-400); RDW Coefficient of Variation 12.7 % (11.5-14.5); RDW Standard Deviation 42.1 fL (36.4-46.3); Red Blood Count 3.46 M/uL (4.20-5.40)
[2024-02-24 08:09] LABS: Albumin Globulin Ratio 1.9 (0.9-2); Albumin Level 3.9 gm/dl (3.4-5.0); BUN Creatinine Ratio 14.1 (10-20); Bilirubin,Total 0.4 mg/dl (0.2-1.0); Calcium 8.6 mg/dl (8.6-10.3); Creatinine Clr Calc Pharmacy 87.8 ml/min; Est GFR (African American) 104.8 ml/min; Est GFR (Non-African American) 90.4 ml/min; Globulin 2.1 gm/dl (2.5-4.0); Magnesium 1.8 mg/dl (1.7-2.4); Potassium 3.5 mmol/L (3.5-5.1)
[2024-02-24 08:19] LABS: INR 2.1 (0.9-1.1); Prothrombin Time 21.2 Seconds (9.0-12.0)
[2024-02-24] MEDS: amLODIPine BESYLATE 5 MG TAB PO SCH (08:37)
[2024-02-24] MEDS: ENALAPRIL MALEATE 10 MG TAB PO SCH (08:37)
--- NOTE | 2024-02-24 09:15 | Urology Consultation ---
Date of Consultation February 24, 2024 Assessment & Plan (1) Nephrolithiasis: (2) Calculus of proximal right ureter: 68-year-old female admitted for colitis, hematochezia, and right proximal ureteral calculus. She is afebrile, hemodynamically stable Labs today reviewedcreatinine 0.64, WBC 4.60, hemoglobin 11.0 Urinalysis had LE, WBCs, and RBCs, but negative for bacteria Urine culture pendingcontinue with antibiotics, follow culture CT scan reviewed and [id number] minimally obstructing right proximal ureteral calculus with mild right collecting system dilatation She is not having any severe or persistent right flank pain Her current symptoms seem to be related to her colitis For now, we will hold off on any acute intervention We discussed outpatient follow-up with our service to discuss stone management after her acute issues are resolved, she is agreeable Continue with medical management per primary team will sign offwill arrange outpatient follow-up with our service Please contact our service with any additional questions or changes in patient status History of Present Illness Reason for Consultation: Ureterolithiasis Requesting Physician: Dr. Vazquez Attending Physician: Trenton Strange DO History of Present Illness This is a 68-year-old female with past medical history of hydrocephalus status post DIRECTOR OF RETAIL shunt, paroxysmal atrial fibrillation on anticoagulation, renal cyst and nephrolithiasis who presented to the ED on 02/23/2024 for evaluation of abdominal pain, diarrhea and rectal bleeding. She was afebrile and hemodynamically stable on arrival. Lab work showed sodium 132, creatinine 0.83, WBC 7.62, hemoglobin 12.4. Urinalysis showed 1+ LE, 21-50 WBC 6-10 RBC, 3-5 epithelials, negative for bacteria. Workup in the emergency department included CT abdomen pelvis with contrast which showed mild wall thickening of the descending colon and sigmoid colon with mild pericolonic stranding. A 6 mm minimally obstructing proximal right ureteral calculus, mild right collecting system dilatation; bilateral nephrolithiasis. She was treated with IV ceftriaxone in the emergency department. She was admitted to the hospital medicine service for colitis, hematochezia, and right ureteral stone. Urology is consulted for right ureteral stone. Patient seen and examined at bedside this morning. She is awake and resting in bed. She reports some left lower quadrant abdominal pain. Notes occasional discomfort in right flank, but no severe or persistent pain. She is voiding spontaneously, no dysuria or hematuria. No nausea or vomiting. No fever or chills. Allergies Allergy/AdvReac Type Severity Reaction Status Date / Time hydrochlorothiazide Allergy Mild Rash Verified 01/20/24 13:17 Home Medications Medication Instructions Recorded Confirmed Type zinc 50 mg tablet 50 mg PO QPM 01/31/22 02/23/24 History mecobalamin (vitamin B12) 1,000 2,000 mcg PO QAM 04/04/22 02/23/24 History mcg chewable tablet ascorbic acid (vitamin C) 250 mg 250 mg PO QAM 05/23/23 02/23/24 History tablet (Vitamin C) atorvastatin 40 mg tablet 40 mg PO HS #90 tabs 06/17/23 02/23/24 Rx flecainide 100 mg tablet 100 mg PO BID #180 tabs 06/24/23 02/23/24 Rx famotidine 20 mg tablet 20 mg PO HS #90 tabs 07/26/23 02/23/24 Rx amlodipine 5 mg tablet 5 mg PO QAM #90 tabs 09/02/23 02/23/24 Rx oxcarbazepine 300 mg tablet 900 mg (3 x 300 mg) PO BID 30 days 10/14/23 02/23/24 Rx #180 tabs furosemide 40 mg tablet 40 mg PO QPM #90 tabs 10/29/23 02/23/24 Rx amlodipine 5 mg-benazepril 20 mg 1 cap PO QAM #30 caps 12/17/23 02/23/24 Rx capsule warfarin 2 mg tablet 2 mg PO HS #100 tabs 01/13/24 02/23/24 Rx warfarin 4 mg tablet 4 mg PO HS #100 tabs 01/13/24 02/23/24 Rx omeprazole 20 mg capsule,delayed 20 mg PO DAILY #30 caps 01/31/24 02/23/24 Rx release Patient History Medical History History of COVID-2020--mild symptoms, resolved. Sepsis hx 2019--Treated at [facility] for urosepsis 2/2 obstructing stone. Urgent stent insertion 09/22. Osteoarthritis On anticoagulant therapy warfarin daily Trigeminal neuralgia of right side of face Hearing deficit bilat. AGUILERA's Hyperlipidemia Hypertension Surgical History History of cystoscopy WITH STENT PLACED; stent removed later History of craniotomy x2 @ [facility] [place] "benign cyst in brain that kept getting bigger, causing severe headaches" with 2nd craniotomy put shunt in History of left breast biopsy benign History of lumbar spinal fusion History of colonoscopy History of tooth extraction all top teeth removed History of cardiac cath x1--2004 @ [facility]--no stents Family History Father Family hx of colon cancer COPD (chronic obstructive pulmonary disease) Diabetes Hypertension Colorectal cancer Uncle Family hx colonic polyps Brother Hypertension Other No family history of adverse response to anesthesia Denies family history of Ovarian cancer Prostate cancer Myocardial infarction Breast cancer Social History Smoking Status: Never smoker Second Hand Exposure: No; Do You Dip or Chew Tobacco: No; Hx Alcohol Use: No Hx Substance Use: No Preferred Language: Greenlandic Communication Ability: Effective Visual Impairment: Partially Limited Hearing Ability: Use of Hearing Aid Fur Blower Required: No Beliefs That Will Affect Care: None marital status: / Current Living Situation: Family Current Living Situation Comment: lives with grandson current occupational status: retired How many Children do You have: 2 Other Information That Helps Us Care for You: No Feels Safe at Home: Yes Safety Concerns: Feels Safe At This Time Childhood Exposure to Second-Hand Smoke: Yes Diet: regular caffeine: No Dental Care, Regularly: No Physical Activity Frequency: Does not Exercise Seatbelt Use: always Sunscreen Use: Yes Do you think of yourself as: straight/heterosexual Gender Identity: Female Assistive Devices: Glasses Review of Systems Review of Systems: All systems reviewed & are unremarkable except as noted in HPI & below Physical Exam Constitutional: well developed and well nourished; no acute distress Respiratory: normal respiratory effort; no respiratory distress and no labored breathing Gastrointestinal (Abdomen): Inspection/Auscultation: abdomen normal to inspection Musculoskeletal: Head/Neck/Chest: normocephalic Neurologic: moves all extremities and awake Psychiatric: Orientation: alert and oriented x 3 Results & Data Vital Signs (Past 12 Hours) Vital Signs Temp Pulse Pulse Resp BP Pulse Ox O2 Del Method 02/24/24 07:44 36.5 C 52 L 16 151/71 H 96 Room Air 02/24/24 07:28 53 L 02/24/24 03:45 36.5 C 55 L 18 144/66 H 96 Room Air 02/23/24 21:57 55 L 02/23/24 21:30 36.3 C L 64 18 146/85 H 96 Room Air PG Care Time/CCT Total # of Minutes Spent Total Time Spent with Patient: Total time spent is greater than 50% in coordination of care (as documented) at patient's floor/unit and/or counseling patient: Coding Level of Care Code 21923 INT INP/OBS CARE 2/55MIN Diagnoses Nephrolithiasis N20.0 Calculus of proximal right ureter N20.1
--- NOTE | 2024-02-24 10:46 | Gastrointestinal Consultation ---
Date of Consultation February 24, 2024 Assessment & Plan (1) Colitis: Ischemic vs infectious -Stool studies are ordered, but yet to be collected prior to the administration of IV antibiotics -Continue IV Ceftriaxone & Flagyl as ordered by primary team -Advance to liquid diet -Can add her home bowel regimen in -Continue to monitor for clinical improvement -Patient is not having urologic intervention so can proceed with colonoscopy on 02/25/24. Supervising Physician Co-Signing Physician Notes I examined the patient and reviewed patient's chart , laboratory data and imaging studies. I agree with with assessment and plan of care as suggested by advanced practice provider. Likely recurrent ischemic colitis. The patient will be scheduled for colonoscopy tomorrow. History of Present Illness Reason for Consultation: "hematochezia, colitis" Attending Physician: Trenton Strange DO History of Present Illness Patient is a 68 yo female with PMH as noted below who presented to [facility] ED due hematochezia, presyncope & abdominal pain. Patient notes that she recently was in the ED at [facility] with presyncope and LLQ pain. She notes at that time she did not have rectal bleeding but had dizziness & was diaphoretic. She notes that she had soft stool but not diarrhea. She was discharged and diagnosed with hyponatremia. She notes she had a CT scan as an outpatient that indicated a nonspecific colitis and obstruction right proximal ureterolithiasis with hydronephrosis. A follow-up US showed the stone was no longer obstructing. She notes lingering pain since that time but last night developed bloody diarrhea and notes she felt presyncopal/diaphoretic. This led her back to [facility]. She has been on PPI & H2 blockers for some time for GERD. Last colonoscopy was 2021 and showed multiple small mouth diverticula and internal hemorrhoids. The patient's CT scan showed concern for an ascending/descending colitis. H/H .6. She denies pertinent family history. At the time of my visit she is on IV antibiotics (Ceftriaxone & Flagyl). She ignacio es Coumadin at home and this is now on hold. She denies further bleeding. She notes chronic constipation for which she takes Miralax & Senna daily. Allergies Allergy/AdvReac Type Severity Reaction Status Date / Time hydrochlorothiazide Allergy Mild Rash Verified 01/20/24 13:17 Home Medications Medication Instructions Recorded Confirmed Type zinc 50 mg tablet 50 mg PO QPM 01/31/22 02/23/24 History mecobalamin (vitamin B12) 1,000 2,000 mcg PO QAM 04/04/22 02/23/24 History mcg chewable tablet ascorbic acid (vitamin C) 250 mg 250 mg PO QAM 05/23/23 02/23/24 History tablet (Vitamin C) atorvastatin 40 mg tablet 40 mg PO HS #90 tabs 06/17/23 02/23/24 Rx flecainide 100 mg tablet 100 mg PO BID #180 tabs 06/24/23 02/23/24 Rx famotidine 20 mg tablet 20 mg PO HS #90 tabs 07/26/23 02/23/24 Rx amlodipine 5 mg tablet 5 mg PO QAM #90 tabs 09/02/23 02/23/24 Rx oxcarbazepine 300 mg tablet 900 mg (3 x 300 mg) PO BID 30 days 10/14/23 02/23/24 Rx #180 tabs furosemide 40 mg tablet 40 mg PO QPM #90 tabs 10/29/23 02/23/24 Rx amlodipine 5 mg-benazepril 20 mg 1 cap PO QAM #30 caps 12/17/23 02/23/24 Rx capsule warfarin 2 mg tablet 2 mg PO HS #100 tabs 01/13/24 02/23/24 Rx warfarin 4 mg tablet 4 mg PO HS #100 tabs 01/13/24 02/23/24 Rx omeprazole 20 mg capsule,delayed 20 mg PO DAILY #30 caps 01/31/24 02/23/24 Rx release Patient History Medical History History of COVID-19 2020--mild symptoms, resolved. Sepsis hx 2019--Treated at [facility] for urosepsis 2/2 obstructing stone. Urgent stent insertion 09/22. Osteoarthritis On anticoagulant therapy warfarin daily Trigeminal neuralgia of right side of face Hearing deficit bilat. 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, causing severe headaches" with 2nd craniotomy put shunt in History of left breast biopsy benign History of lumbar spinal fusion History of colonoscopy History of tooth extraction all top teeth removed History of cardiac cath x1--2004 @ [facility]--no stents Family History Father Family hx of colon cancer COPD (chronic obstructive pulmonary disease) Diabetes Hypertension Colorectal cancer Uncle Family hx colonic polyps Brother Hypertension Other No family history of adverse response to anesthesia Denies family history of Ovarian cancer Prostate cancer Myocardial infarction Breast cancer Social History Smoking Status: Never smoker Second Hand Exposure: No; Do You Dip or Chew Tobacco: No; Hx Alcohol Use: No Hx Substance Use: No Preferred Language: Swedish Communication Ability: Effective Visual Impairment: Partially Limited Hearing Ability: Use of Hearing Aid Station Attendant Required: No Beliefs That Will Affect Care: None marital status: / Current Living Situation: Family Current Living Situation Comment: lives with grandson current occupational status: retired How many Children do You have: 2 Other Information That Helps Us Care for You: No Feels Safe at Home: Yes Safety Concerns: Feels Safe At This Time Childhood Exposure to Second-Hand Smoke: Yes Diet: regular caffeine: No Dental Care, Regularly: No Physical Activity Frequency: Does not Exercise Seatbelt Use: always Sunscreen Use: Yes Do you think of yourself as: straight/heterosexual Gender Identity: Female Assistive Devices: Glasses Review of Systems Constitutional: no fever and no chills Respiratory: no cough and no dyspnea Cardiovascular: no chest pain Gastrointestinal: + abdominal pain, + diarrhea/loose stool s and + blood in stools Physical Exam Constitutional: well developed Respiratory: normal respiratory effort Gastrointestinal (Abdomen): Inspection/Auscultation: abdomen normal to inspection and normal bowel sounds Percussion/Palpation: abdomen soft; abdomen nontender Results & Data Vital Signs (Past 12 Hours) Vital Signs Temp Pulse Pulse Resp BP Pulse Ox O2 Del Method 02/24/24 08:45 Room Air 02/24/24 07:44 36.5 C 52 L 16 151/71 H 96 Room Air 02/24/24 07:28 53 L 02/24/24 03:45 36.5 C 55 L 18 144/66 H 96 Room Air PG Care Time/CCT Total # of Minutes Spent Total Time Spent with Patient: Total time spent is greater than 50% in coordination of care (as documented) at patient's floor/unit and/or counseling patient: Coding Level of Care Code 95279 INT INP/OBS CARE MIN Diagnoses Colitis K52.9
[2024-02-24] MEDS: POLYETHYLENE (MIRALAX) 17 GM PACK PO SCH (11:39)
--- NOTE | 2024-02-24 17:47 | Hospitalist Progress Note ---
Date of Service February 24, 2024 Assessment & Plan (1) Colitis: Plan: Ischemic vs infectious -C/w IV Ceftriaxone & Flagyl -GI onboard planned for colonoscopy tomorrow 02/24 -advance diet post procedure. -Bowel prep. (2) Calculus of proximal right ureter: Plan: CT scan: 6mm minimally obstructing right proximal ureteral calculus with mild right collecting system dilatation and B/L Nephrolithiasis. Asymptomatic. Evaluated by - no acute intervention at this time. Plan to f/u at out patient urology clinic. (3) Atrial fibrillation: Plan: Known chronic hx. Takes warfarin but on HOLD at the moment. (4) Acute ischemic colitis: Admission and Anticipated Discharge Date Admission Date: February 23, 2024 Supervising Physician Co-Signing Physician Notes I personally examined the patient and verified all simpson points of history and exam, discussed case, and agree with decision making with Dr Sarah Ceron feeling a bit better. has just gotten clear liquids. No further bloody diarrhea. Belly pain better. School Psychological Examiner input appreciated. Vitals noted, in general she is awake and alert pleasant no distress. HEENT normocephalic atraumatic mucous membranes moist. Mild lower abdominal tenderness without guarding rebound or rigidity. Colitis/hematocheziafavor ischemic. Continue antibiotics. Advance diet as tolerated. Scope as an outpatient. Otherwise as above Subjective Pt was seen and evaluated this morning by the bedside. Pt speaking clearly. Review of Systems Review of Systems: Constitutional: denies fever, chills. HEENT: denies congestion, sore throat Cardio: denies chest pain, palpitations Resp: denies shortness of breath, cough GI: c/o Lt lower abdominal pain, diarrhea better, denies nausea, vomiting, constipation. : denies pain with urination, change in urinary frequency Neuro: denies new numbness, tingling, weakness Physical Exam Physical Exam: General:Alert and oriented, no acute distress. HEENT: Normocephalic, moist oral mucosa, Cardio: Regular rate and rhythm, no murmur, Resp:Lungs clear to auscultation b/l, no wheezes or rhonchi, GI: Soft , tender Lt LQ+, nondistended, bowel sounds active Skin: Warm, pink, dry, Psych: Mood-affect congruence. Results & Data Results & Data Vital Signs (Past 12 Hours) Vital Signs Temp Pulse Pulse Resp BP Pulse Ox O2 Del Method 02/24/24 15:52 36.6 C 60 16 126/76 98 Room Air 02/24/24 14:06 58 L 02/24/24 11:46 36.5 C 56 L 18 133/81 96 Room Air 02/24/24 08:45 Room Air 02/24/24 07:44 36.5 C 52 L 16 151/71 H 96 Room Air 02/24/24 07:28 53 L (3) Atrial fibrillation Atrial fibrillation type: unspecified Qualified Code(s): I48.91 - Unspecified atrial fibrillation
--- NOTE | 2024-02-24 17:49 | Billing Data ---
Date of Service February 24, 2024 Coding Level of Care Code 20906 SUB INP/OBS CARE
[2024-02-24] MEDS: cefTRIAXone SODIUM 2,000 MG/50 ML BAG IV SCH (17:53)
[2024-02-24] MEDS: LAVAGE SOLUTION 4000ML PO SCH (19:45)
[2024-02-24] MEDS: FAMOTIDINE 20 MG TAB PO SCH (20:07)
[2024-02-24 23:37] LABS: Adenovirus F 40/41 PCR Not Detected (NotDetected); Astrovirus PCR Not Detected (NotDetected); Campylobacter PCR Not Detected (NotDetected); Cryptosporidium PCR Not Detected (NotDetected); Cyclospora cayetanensis PCR Not Detected (NotDetected); Entamoeba histolytica PCR Not Detected (NotDetected); Enteroaggregative E.coli(EAEC) Not Detected (NotDetected); Enteropathogenic E.coli (EPEC) Not Detected (NotDetected); Enterotoxigenic E.coli (ETEC) Not Detected (NotDetected); Giardia lamblia PCR Not Detected (NotDetected); Norovirus GI/GII PCR Not Detected (NotDetected); Plesiomonas shigelloides PCR Not Detected (NotDetected); Rotavirus A PCR Not Detected (NotDetected); Salmonella PCR Not Detected (NotDetected); Sapovirus PCR Not Detected (NotDetected); Shiga-like Toxin E.coli (STEC) Not Detected (NotDetected); Shigella/Enteroinvasive E.coli Not Detected (NotDetected); Vibrio cholerae PCR Not Detected (NotDetected); Vibrio species PCR Not Detected (NotDetected); Yersinia enterocolitica PCR Not Detected (NotDetected)
--- NOTE | 2024-02-25 06:20 | Electrocardiogram Report ---
Test Reason : Blood Pressure : */* mmHG Vent. Rate : 55 BPM Atrial Rate : 55 BPM P-R Int : 226 ms QRS Dur : 142 ms QT Int : 472 ms P-R-T Axes : 68 -38 11 degrees QTcB Int : 451 ms Sinus bradycardia with 1st degree A-V block Left axis deviation Left ventricular hypertrophy with QRS widening Possible Lateral infarct Poor R wave progression, consider anterior NC vs. lead placement vs. LVH Abnormal ECG When compared with ECG of 23-Sep-2019 18:31, Vent. rate has decreased by 32 bpm Confirmed by Siddharth Hartley ([id number]) on 02/25/2024 6:20:33 AM Referred By: REFERRED SELF Confirmed By: Siddharth Hartley
--- NOTE | 2024-02-25 07:27 | Hospitalist Progress Note ---
Date of Service February 25, 2024 Assessment & Plan (1) Acute ischemic colitis: Plan: s/p colonoscopy 02/24: Mild acute Ischemic colitis of descending and sigmoid colon. -C/w IV Ceftriaxone & Flagyl -Full liquid diet > advance diet as tolerated. -restart anticoagulation in 2 days (02/26) - (2) Calculus of proximal right ureter: Plan: CT scan: 6mm minimally obstructing right proximal ureteral calculus with mild right collecting system dilatation and B/L Nephrolithiasis. Asymptomatic. Evaluated by - no acute intervention at this time. Plan to f/u at out patient urology clinic. (3) Atrial fibrillation: Plan: Known chronic hx. Takes warfarin but on HOLD at the moment. today(02/24) INR 1.8 Admission and Anticipated Discharge Date Admission Date: February 23, 2024 Supervising Physician Co-Signing Physician Notes I personally examined the patient and verified all simpson points of history and exam, discussed case, and agree with decision making with Dr Sarah Ceron feeling better, feels up to going home. Vitals noted, in general she is awake and alert pleasant no distress. HEENT normocephalic atraumatic mucous membranes moist. Mild lower abdominal tenderness without guarding rebound or rigidity, able to push much harder than yesterday. ischemic colitis - doing better. safe/stable for home. appreciate GI input. restart coumadin in ~2 days. finish course of abx. otherwise as above Subjective Pt was seen and evaluated this morning by the bedside. Pt c/o minimal lower abdo pains. denies fevers, chills. No acute overnight events. Review of Systems Review of Systems: Constitutional: denies fever, chills. HEENT: denies congestion, sore throat Cardio: denies chest pain, palpitations Resp: denies shortness of breath, cough GI: c/o Lt lower abdominal pain, diarrhea better, denies nausea, vomiting, constipation. : denies pain with urination, change in urinary frequency Neuro: denies new numbness, tingling, weakness Physical Exam Physical Exam: General:Alert and oriented, no acute distress. HEENT: Normocephalic, moist oral mucosa, Cardio: Regular rate and rhythm, no murmur, Resp:Lungs clear to auscultation b/l, no wheezes or rhonchi, GI: Soft , minimal tender Lt LQ+, nondistended, bowel sounds active Skin: Warm, pink, dry, Psych: Mood-affect congruence. Results & Data Results & Data Vital Signs (Past 12 Hours) Vital Signs Temp Pulse Pulse Resp BP Pulse Ox O2 Del Method 02/25/24 07:10 Room Air 02/25/24 07:01 55 L 02/25/24 03:38 36.5 C 52 L 18 152/78 H 98 Room Air 02/25/24 00:08 36.5 C 56 L 20 153/76 H 97 Room Air 02/24/24 21:46 60 02/24/24 20:13 36.4 C L 60 18 155/86 H 98 Room Air Resident Activity Tracking Resident Involvement: Resident Care Provided Care Provided: Adult Hospital Medicine (3) Atrial fibrillation Atrial fibrillation type: unspecified Qualified Code(s): I48.91 - Unspecified atrial fibrillation
[2024-02-25 07:58] LABS: Basophils # (auto) 0.04 K/uL (0.00-0.20); Basophils % (auto) 0.8 %; Eosinophils # (auto) 0.19 K/uL (0.00-0.50); Eosinophils % (auto) 3.7 %; Hematocrit (blood only) 34.1 % (37.0-47.0); Hemoglobin 11.4 g/dl (12.0-16.0); Immature Granulocytes # (auto) 0.02 K/uL (0.01-0.20); Immature Granulocytes % (auto) 0.4 %; Lymphocytes # (auto) 1.36 K/uL (1.20-3.40); Lymphocytes % (auto) 26.2 %; Mean Corpuscular Hemoglobin 31.1 pg (25.0-34.0); Mean Corpuscular Hgb Conc 33.4 g/dL (32.0-36.0); Mean Corpuscular Volume 92.9 fL (80.0-100.0); Mean Platelet Volume 8.9 fL (9.4-12.4); Monocytes # (auto) 0.33 K/uL (0.11-0.59); Monocytes % (auto) 6.3 %; Neutrophils # (auto) 3.26 K/uL (1.40-6.50); Neutrophils % (auto) 62.6 %; Platelet Count 237 K/uL (130-400); RDW Coefficient of Variation 12.7 % (11.5-14.5); RDW Standard Deviation 43.3 fL (36.4-46.3); Red Blood Count 3.67 M/uL (4.20-5.40)
[2024-02-25 08:10] LABS: Creatinine Clr Calc Pharmacy 83.9 ml/min; Est GFR (African American) 103.2 ml/min; Est GFR (Non-African American) 89.1 ml/min; Potassium 3.6 mmol/L (3.5-5.1)
[2024-02-25 08:26] LABS: INR 1.8 (0.9-1.1); Prothrombin Time 18.2 Seconds (9.0-12.0)
--- NOTE | 2024-02-25 08:28 | Anesthesiology Consultation ---
Date of Service February 25, 2024 Assessment & Plan Chart Review Chart Review: Acceptable Risk for Surgery, Patient NOT seen in Pre Admission Testing and administrative assistant data entry initiated Consults Requested none Proposed Anesthesia Anesthesia Type: MAC History Surgery Operation Date: 02/25/24 18:05 Proposed Procedures p Colonoscopy Dr. Jonas - Reynold Jonas MD Height/Weight Height: 5 ft 4 in Weight: 88 kg Allergies Allergy/AdvReac Type Severity Reaction Status Date / Time hydrochlorothiazide Allergy Mild Rash Verified 02/25/24 08:24 Medications Home Medications Medication Instructions Recorded Confirmed Last Taken zinc 50 mg tablet 50 mg PO QPM 01/31/22 02/23/24 02/08/22 mecobalamin (vitamin B12) 1,000 2,000 mcg PO QAM 04/04/22 02/23/24 Unknown mcg chewable tablet ascorbic acid (vitamin C) 250 mg 250 mg PO QAM 05/23/23 02/23/24 Unknown tablet (Vitamin C) atorvastatin 40 mg tablet 40 mg PO HS #90 tabs 06/17/23 02/23/24 Unknown flecainide 100 mg tablet 100 mg PO BID #180 tabs 06/24/23 02/23/24 Unknown famotidine 20 mg tablet 20 mg PO HS #90 tabs 07/26/23 02/23/24 Unknown amlodipine 5 mg tablet 5 mg PO QAM #90 tabs 09/02/23 02/23/24 Unknown oxcarbazepine 300 mg tablet 900 mg (3 x 300 mg) PO BID 30 days 10/14/23 02/23/24 Unknown #180 tabs furosemide 40 mg tablet 40 mg PO QPM #90 tabs 10/29/23 02/23/24 Unknown amlodipine 5 mg-benazepril 20 mg 1 cap PO QAM #30 caps 12/17/23 02/23/24 Unknown capsule warfarin 2 mg tablet 2 mg PO HS #100 tabs 01/13/24 02/23/24 Unknown warfarin 4 mg tablet 4 mg PO HS #100 tabs 01/13/24 02/23/24 Unknown omeprazole 20 mg capsule,delayed 20 mg PO DAILY #30 caps 01/31/24 02/23/24 Unknown release Active Medications Generic Name Dose Route Start Last Admin Trade Name Freq PRN Reason Stop Dose Admin Acetaminophen 1,000 mg 02/23/24 22:37 02/24/24 20:05 Acetaminophen 500 Mg Tab PO 03/24/24 22:36 1,000 mg Q8H PRN Administration Pain or Fever Amlodipine Besylate 10 mg 02/24/24 09:00 02/24/24 08:37 Amlodipine Besylate 5 Mg Tab PO 03/25/24 08:59 10 mg QAM ASHWIN Administration Atorvastatin Calcium 40 mg 02/23/24 21:35 02/24/24 20:08 Atorvastatin 40 Mg Tab PO 03/24/24 21:34 40 mg HS ASHWIN Administration Enalapril Maleate 20 mg 02/24/24 09:00 02/24/24 08:37 Enalapril Maleate 10 Mg Tab PO 03/25/24 08:59 20 mg QAM ASHWIN Administration Famotidine 20 mg 02/24/24 21:00 02/24/24 20:07 Famotidine 20 Mg Tab PO 03/25/24 20:59 20 mg BID ASHWIN Administration Flecainide Acetate 100 mg 02/23/24 21:45 02/24/24 20:09 Flecainide Acetate 100 Mg Tablet PO 03/24/24 21:44 100 mg BID ASHWIN Administration Metronidazole 500 mg in 100 mls @ 100 mls/hr 02/23/24 22:00 02/25/24 06:42 Flagyl IV 03/04/24 21:59 Infused Q8H ASHWIN Infusion Protocol Ceftriaxone Sodium 2,000 mg in 50 mls @ 100 mls/hr 02/24/24 18:00 02/24/24 18:26 Rocephin IV 03/05/24 17:59 Infused Q24H ASHWIN Infusion Lactated Ringer's 1,000 mls @ 125 mls/hr 02/23/24 21:30 02/25/24 05:41 Lr IV 03/24/24 21:29 125 mls/hr .Q8H ASHWIN Administration Oxcarbazepine 900 mg 02/23/24 21:45 02/24/24 20:08 Oxcarbazepine 150 Mg Tablet PO 03/24/24 21:44 900 mg BID ASHWIN Administration Polyethylene Glycol 17 gm 02/24/24 11:00 02/24/24 11:39 Polyethylene (Miralax) 17 Gm Pack PO 03/25/24 10:59 17 gm DAILY ASHWIN Administration Past Medical History Medical History History of COVID-19 2020--mild symptoms, resolved. Sepsis hx 2019--Treated at [facility] for urosepsis 2/2 obstructing stone. Urgent stent insertion 09/22. Osteoarthritis On anticoagulant therapy warfarin daily Trigeminal neuralgia of right side of face Hearing deficit bilat. 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, causing severe headaches" with 2nd craniotomy put shunt in History of left breast biopsy benign History of lumbar spinal fusion History of colonoscopy History of tooth extraction all top teeth removed History of cardiac cath x1--2004 @ [facility]--no stents Social History Smoking Status: Never smoker Do You Dip or Chew Tobacco: No Hx Alcohol Use: No Hx Substance Use: No substance use type: does not use Physical Exam Vital Signs Last Vital Signs Temp 36.3 C L 02/25/24 08:00 Pulse 53 L 02/25/24 08:00 Resp 16 02/25/24 08:00 BP 166/76 H 02/25/24 08:00 Pulse Ox 98 02/25/24 08:00 O2 Del Method Room Air 02/25/24 08:00 Testing Laboratory Results 02/25/24 07:28 02/25/24 07:28 PT 18.2 Seconds (9.0-12.0) H 02/25/24 07:28 INR 1.8 (0.9-1.1) H 02/25/24 07:28 APTT 44 Seconds (21-31) H 02/23/24 15:25 Urine Color Yellow 02/23/24 16:42 Urine Appearance Clear (Clear) 02/23/24 16:42 Urine pH 5.5 (4.5-7.5) 02/23/24 16:42 Ur Specific [place] 1.024 (1.000-1.030) 02/23/24 16:42 Urine Protein Negative (Negative) 02/23/24 16:42 Urine Glucose (UA) Negative (Negative) 02/23/24 16:42 Urine Ketones Negative (Negative) 02/23/24 16:42 Urine Nitrite Negative (Negative) 02/23/24 16:42 Ur Leukocyte Esterase 1+ (Negative) H 02/23/24 16:42 Urine WBC (Auto) 21-50 /hpf (0-5) H 02/23/24 16:42 Urine RBC (Auto) 6-10 /hpf (0-2) H 02/23/24 16:42 U Hyaline Cast (Auto) 0-2 /lpf (0-2) 02/23/24 16:42 U Epithel Cells (Auto) 3-5 /hpf (0-2) H 02/23/24 16:42 Urine Bacteria (Auto) None Seen (None Seen) 02/23/24 16:42 02/23/24 16:42 Urine Culture - Final Urine,Clean Catch More than three types of organisms present, all moderate counts mixed probable skin grey. No further identifications or sensitivities to follow. Electrocardiogram Date: 02/24/24 Test Reason : Blood Pressure : */* mmHG Vent. Rate : 55 BPM Atrial Rate : 55 BPM P-R Int : 226 ms QRS Dur : 142 ms QT Int : 472 ms P-R-T Axes : 68 -38 11 degrees QTcB Int : 451 ms Sinus bradycardia with 1st degree A-V block Left axis deviation Left ventricular hypertrophy with QRS widening Possible Lateral infarct Poor R wave progression, consider anterior MD vs. lead placement vs. LVH Abnormal ECG When compared with ECG of 23-Sep-2019 18:31, Vent. rate has decreased by 32 bpm Confirmed by Siddharth Hartley ([id number]) on 02/25/2024 6:20:33 AM Echocardiogram Date: 11/24/21 EF: 65-70 LV Function: normal RWMA: + none Other Findings: + LVH (mod) Valvular Disease: + MR (mild)
--- NOTE | 2024-02-25 08:37 | Communication Note ---
Date of Service: February 25, 2024 The patient is doing well. Hematochezia has resolved. Abdominal pain is receding. The patient is afebrile. She is awake and alert. Abdomen is soft without tenderness. Impressions/plan: 1. Likely acute ischemic colitis. Colonoscopy. Likely restart Coumadin depending on colonoscopy results.
[2024-02-25 09:27] VITALS: RESP 18
--- NOTE | 2024-02-25 09:30 | GI REPORT ---
[facility] Patient: SAYDA MCELROY : 1955 Sex at : Female Age: 68 Years Procedure: Colonoscopy Date: 02/25/2024 Attending Physician: Reynold Jonas MD Referring MD: Referred Self Indications: - Rectal bleeding - Thickening of the left colon on recent CAT scan, suspected ischemic colitis. Medications: - Monitored Anesthesia Care Complications: - No immediate complications. Estimated Blood Loss: - Estimated blood loss: None. Procedure: - The pediatric colonoscope was introduced through the anus and advanced to the cecum, identified by appendiceal orifice and ileocecal valve. - The colonoscopy was performed with ease. - The patient tolerated the procedure well. - The quality of the bowel preparation was evaluated using the BBPS ([place] Bowel Preparation Scale) with scores of: Right Colon = 3, Transverse Colon = 3 and Left Colon = 3 (entire mucosa seen well with no residual staining, small fragments of stool or opaque liquid). The total BBPS score equals 9. Findings: - The digital rectal exam was normal. - A localized area of mildly erythematous, inflamed and eroded mucosa was found in the sigmoid colon and in the descending colon. Biopsies were taken with a cold forceps for histology. Findings were suggestive of mild acute ischemic colitis - No other significant abnormalities were identified in a careful examination of the remainder of the colon. Impression: - Erythematous, inflamed and eroded mucosa in the sigmoid colon and in the descending colon. Biopsied. - Findings were suggestive of mild acute ischemic colitis - Mild ischemic colitis extending from 15 to 40 cm. Recommendation: - Await pathology results. - Repeat colonoscopy in 5 years for screening purposes. - Continue present medications. - Return to GI office PRN. - Return to primary care physician as previously scheduled. Procedure Code(s): - 91129, Colonoscopy, flexible; with biopsy, single or multiple Diagnosis Code(s): - K62.5, Hemorrhage of anus and rectum - K63.89, Other specified diseases of intestine - K52.9, Noninfective gastroenteritis and colitis, unspecified CPT(R) - 2022 copyright [employer]. All Rights Reserved. The CPT codes, CCI edits and ICD codes generated are intended as suggestions and were generated based on input data. These codes are preliminary and upon communications specialist review may be revised to meet current compliance and payer requirements. The provider is responsible for the final determination of appropriate codes, and modifiers. Reynold Jonas M.D., MD This document has been electronically signed. Note Initiated:02/25/2024 Note Completed:02/25/2024 9:29 AM [id number]
--- NOTE | 2024-02-25 09:31 | Communication Note ---
Date of Service: February 25, 2024 Colonoscopy showed changes consistent with mild ischemic colitis of the left colon. Recommendations: Advance diet. Restart anticoagulation in 2 days. Okay to discharge from GI standpoint.
[2024-02-25] MEDS: SENNA 8.6 MG TAB PO SCH (10:30)
[2024-02-25] MEDS: PROPOFOL IV EMULSION 10 MG/ML 20 ML VIAL IV ONE ×2 (10:38)
[2024-02-25] MEDS: LIDOCAINE 2% 2 ML VIAL/AMP(20MG/ML) INFIL ONE (10:38)
--- NOTE | 2024-02-25 12:49 | Anesthesiology Progress Note ---
Date of Service February 25, 2024 Anesthesia Post Procedure Vital Signs Vital Signs: Temp Pulse Pulse Resp BP Pulse Ox O2 Del Method 02/25/24 11:02 36.4 C L 57 L 18 167/80 H 98 Room Air 02/25/24 10:12 36.4 C L 57 L 18 175/76 H 96 Room Air 02/25/24 09:55 63 18 185/85 H 99 Room Air 02/25/24 09:40 57 L 18 171/78 H 99 Room Air 02/25/24 09:25 58 L 18 154/82 H 98 Room Air 02/25/24 08:26 36.4 C L 58 L 16 187/80 H 99 Room Air 02/25/24 08:00 36.3 C L 53 L 16 166/76 H 98 Room Air 02/25/24 07:10 Room Air 02/25/24 07:01 55 L 02/25/24 03:38 36.5 C 52 L 18 152/78 H 98 Room Air 02/25/24 00:08 36.5 C 56 L 20 153/76 H 97 Room Air 02/24/24 21:46 60 02/24/24 20:13 36.4 C L 60 18 155/86 H 98 Room Air 02/24/24 15:52 36.6 C 60 16 126/76 98 Room Air 02/24/24 14:06 58 L Pain Intensity Abdomen: Pain Intensity: 3 Transfer of Care Handoff Completed per policy Notes Mental Status: alert / awake / arousable and participated in evaluation Patient Amnestic to Procedure: Yes Nausea / Vomiting: adequately controlled Pain: adequately controlled Airway Patency, RR, SpO2: stable & adequate BP & HR: stable & adequate Hydration State: stable & adequate Anesthetic Complications: no major complications apparent
--- NOTE | 2024-02-25 15:57 | Communication Note ---
Date of Service: February 25, 2024 By CMS guidelines, a determination that the admission or continued stay is not medically necessary has been made by a member of the UR committee and a physician for this hospital stay, therefore a Code 44 will be completed and the Inpatient admission will be changed to outpatient.
[2024-02-25 15:58] VITALS: BP 134/74; PULSE 60; TEMP 98.4; O2SAT 97
--- NOTE | 2024-02-25 16:30 | Billing Data ---
Date of Service February 25, 2024 Coding Level of Care Code 00307 IN/OBS DISCH 30 MIN/LESS
--- NOTE | 2024-02-25 16:42 | Discharge Summary ---
Date of Service February 25, 2024 Admission HPI Per Admitting Provider Liliana Olson is a 68 year old female who presents to the ER due to bloody diarrhea, presyncope and abdominal pain. She reports sudden onset generalized abdominal pain without radiation starting around 7-7:30pm last night, associated diaphoresis (lasted for 30 minutes, nausea and felt she had to have a BM. She had a soft BM then diarrhea, then bright red blood. The pain lasted the rest of the night for which she used a heating pad but has now mostly resolved. This is the second episode very similar to this - again it occurred on January 15. At the time it was left sided abdominal pain. She went to the ER in [place] with the main symptoms of presyncope and had lab work but no imaging and was discharged back to her PCP. Her symptoms had mostly resolved except a lingering mild abdominal pain when she saw her PCP on January 20. Exam revealed LLQ pain and she underwent a CT due to concern for possible diverticulitis. This showed a non specific colitis and an obstructing right proximal ureterolithiasis with hydronephrosis. However she reports having no right sided pain at that time and PCP note from the time confirmed her pain was LLQ. She follow up ultrasound showed this stone was no longer obstructing and the assumption was that she passed it. She has had lingering mild pain since but only suddenly got worse again last night and the hematochezia is new this time. She also notes being on both omeprazole and famotidine for reflux and this not fully controlling her symptoms sometimes. She had some melena at the beginning of February for 3-4 days but reports this has now resolved. Last colonoscopy was in [address] Mccormack showing multiple small mouthed diverticula and non bleeding internal hemorrhoids but no polyps. Admission Exam Per Admitting Provider General:Alert and oriented, no acute distress. HEENT: Normocephalic, moist oral mucosa, Cardio: Regular rate and rhythm, no murmur, Resp:Lungs clear to auscultation b/l, no wheezes or rhonchi, GI: Soft , minimal tender Lt LQ+, nondistended, bowel sounds active Skin: Warm, pink, dry, Psych: Mood-affect congruence. Principal Diagnosis Ischemic colitis Discharge Exam General:Alert and oriented, no acute distress. HEENT: Normocephalic, moist oral mucosa, Cardio: Regular rate and rhythm, no murmur, Resp:Lungs clear to auscultation b/l, no wheezes or rhonchi, GI: Soft , minimal tender Lt LQ+, nondistended, bowel sounds active Skin: Warm, pink, dry, Psych: Mood-affect congruence. Discharge Data Allergies Allergy/AdvReac Type Severity Reaction Status Date / Time hydrochlorothiazide Allergy Mild Rash Verified 02/25/24 08:24 Consultations 02/23/24 18:46 ED Decision to Admit Stat 02/23/24 21:50 Consult Gastroenterology Routine Consult Urology Routine Procedures Performed Operation Date: 02/25/24 18:05 Actual Procedures p Colonoscopy Biopsy Cytology - Reynold Jonas MD Ordered Studies 02/23/24 17:10 CT Abd and Pelvis [CT abd pelvis IV con only] Stat Hospital Course (1) Acute ischemic colitis: Treated with NPO, IVF and IV Ceftriaxone and Metronidazole. Evaluated by GI and underwent colonoscopy. Pt symptoms improved and stable to d/c home on PO A ugmentin for 7 days. follow up with PCP in a week. (2) Calculus of proximal right ureter: CT scan: 6mm minimally obstructing right proximal ureteral calculus with mild ri ght collecting system dilatation and B/L Nephrolithiasis. Evaluated by and advised to f/u at out patient urology clinic. (3) Atrial fibrillation: restarted Warfarin after colonoscopy. consider continuing her usual home dose of warfarin for anticoagulation. Total Time Total Time Spent Total Time Spent (In Minutes): as per attending entry. Discharge Plan Discharge Items Patient Disposition: Home - Self-Care Reason For Visit: URETEROLITHIASIS, HEMORRHAGIC COLITIS Discharge Diagnosis: ischemic colitis Condition on Discharge: Fair Activity: Per Instructions section Non-emergency contact: Primary Care Provider, Printing Shop Supervisor and Urologist Call non-emergency contact if: you have any medication questions, your symptoms worsen, your pain is worsening and your pain is unusual for you Follow-up/Referrals: Hong Hayden MD [Physician] - (right ureteral calculus) Kailyn Bravo DO [Primary Care Provider] - Diet: Regular Addtl Attending Provider Instructions: You were admitted to the hospital for bloody bowel movements and abdominal pain. A colonoscopy was performed which confirmed signs of ischemic colitis- a condition where not enough blood is supplying your colon. Your case is mild and typically resolves on its own. Due to the damage to your colon, you will be placed on antibiotics prophylactically to prevent infection. On the CT scan of your abdomen when you were admitted to the hospital, a 6mm obstructing stone was seen in your right ureter. Urology discussed this with you while in the hospital and it was decided to further address this in the outpatient setting. A discharge summary will be sent to your primary care physician to ensure continuity of care. Please bring this discharge summary with you to your next office appointment so that your provider can review it at that time. Medications: Your medication list has been reviewed and reconciled upon discharge to ensure accuracy and continuity of care. An updated list of all your medications is included with your hospital discharge paperwork. Please review this list closely and make note of any changes to your medications. - You should take augmentin (an antibiotic) twice per day for 7 days. Your next dose would be due tomorrow morning (02/25). - You should hold your warfarin for one more day (02/25) and resume this on , 02/26. - Otherwise, continue all other medications like prior to your hospital stay. Follow up appointments: - Make a follow up appointment with your PCP within the next week. It is very important that you follow up with them shortly after discharge from the [facility]. - You should follow up with your urology team for further management of your kidney/ureteral stone. - Keep all of your follow up appointments as already scheduled. If you cannot make an appointment, notify your provider. CONTACT YOUR PRIMARY CARE PROVIDER if you experience any of the following: - Difficulty following your treatment plan - Difficulty taking any of your medications CALL 911 OR GO TO THE EMERGENCY DEPARTMENT if you experience any of the following: - Sudden, severe abdominal pain or nausea/vomiting - Severe chest pain or chest pain that radiates to your jaw or arm - Sudden, severe shortness of breath or difficulty breathing Pending Studies at Discharge: No Stand-Alone Forms: My [facility], Smoking Cessation Medications and DC Order Prescriptions: New amoxicillin-pot clavulanate 875-125 mg tablet 1 tab PO BID Qty: 14 0RF Continued mecobalamin (vitamin B12) 1,000 mcg tablet,chewable 2,000 mcg PO QAM Rx Instructions: [facility] 04/03 atorvastatin 40 mg tablet 40 mg PO HS Qty: 90 3RF flecainide 100 mg tablet 100 mg PO BID Qty: 180 3RF amlodipine 5 mg tablet 5 mg PO QAM Qty: 90 3RF oxcarbazepine 300 mg tablet 900 mg PO BID 30 Days Qty: 180 3RF furosemide 40 mg tablet 40 mg PO QPM Qty: 90 3RF amlodipine-benazepril 5-20 mg capsule 1 cap PO QAM Qty: 30 5RF omeprazole 20 mg capsule,delayed release(DR/EC) 20 mg PO DAILY Qty: 30 2RF famotidine 20 mg tablet 20 mg PO HS Qty: 90 2RF ascorbic acid (vitamin C) [Vitamin C] 250 mg Tablet 250 mg PO QAM zinc 50 mg Tablet 50 mg PO QPM Held warfarin 4 mg tablet 4 mg PO HS Qty: 100 3RF Hold Instructions: Resume on 02/27/24. Resume 02/26 Protocol: Dose Management Condition: Saturday Dose/Route: 6 mg Instruction: 1 x 2 mg tablet, 1 x 4 mg tablet Condition: Saturday Dose/Route: 6 mg Instruction: 1 x 2 mg tablet, 1 x 4 mg tablet Condition: Saturday Dose/Route: 7 mg Instruction: 3.5 x 2 mg tablets Condition: Saturday Dose/Route: 6 mg Instruction: 1 x 2 mg tablet, 1 x 4 mg tablet Condition: Dose/Route: 6 mg Instruction: 1 x 2 mg tablet, 1 x 4 mg tablet Condition: Saturday Dose/Route: 7 mg Instruction: 3.5 x 2 mg tablets Condition: Saturday Dose/Route: 6 mg Instruction: 1 x 2 mg tablet, 1 x 4 mg tablet Protocol Text: Adjustment Start Date: Saturday02/05/24 INR Value: 2.2 INR Date: 02/04/24 Recheck Date: 03/06/24 Rx Instructions: with 2mg to equal 6mg warfarin 2 mg tablet 2 mg PO HS Qty: 100 3RF Hold Instructions: Resume on 02/27/24. Resume 02/26 Protocol: Dose Management Condition: Saturday Dose/Route: 6 mg Instruction: 1 x 2 mg tablet, 1 x 4 mg tablet Condition: Saturday Dose/Route: 6 mg Instruction: 1 x 2 mg tablet, 1 x 4 mg tablet Condition: Saturday Dose/Route: 7 mg Instruction: 3.5 x 2 mg tablets Condition: Saturday Dose/Route: 6 mg Instruction: 1 x 2 mg tablet, 1 x 4 mg tablet Condition: Dose/Route: 6 mg Instruction: 1 x 2 mg tablet, 1 x 4 mg tablet Condition: Saturday Dose/Route: 7 mg Instruction: 3.5 x 2 mg tablets Condition: Saturday Dose/Route: 6 mg Instruction: 1 x 2 mg tablet, 1 x 4 mg tablet Protocol Text: Adjustment Start Date: Saturday02/05/24 INR Value: 2.2 INR Date: 02/04/24 Recheck Date: 03/06/24 Rx Instructions: with 4mg to equal 6mg Discharge Orders: Discharge Order (Routine); Ordered 02/25/24 Ordered By: Tasha Watts Admission Data Admit Date/Time: 02/25/24 08:15 Attending Provider: Trenton Strange Admit Provider: Juan Jose Vazquez Primary Care Provider: Kailyn Bravo Other Providers: Juan Jose Vazquez; Abigial Bird Jr; Dillan Sparks Other Interventions: Discharge Summary Assessment (RN) Last Done: 02/25/24 16:28
== END 2024-02-25 18:03 | disposition home or self-care (01) | DRG 394 ==
LOC: 2N 14:39 → ED 14:39 → SUATTDRO 18:58 → 2N 20:26